=== PATIENT | male | born 1960 | race Caucasian/White ===

== ENCOUNTER 2016-07-15 22:45 | Emergency (ER) | payer OTHER ==
[~2016-07-15] VITALS: Ht 177.8 cm; Wt 55.0 kg
[~2016-07-15 22:45] MED LIST: DILA100C PO; QUET200 PO; TRAZ100 PO; VIST50CA PO
[2016-07-15 23:12] VITALS: BP 116/67; PULSE 93; RESP 18; TEMP 98.3; O2SAT 98
[2016-07-15] MEDS ORDERED: SERO400T PO (23:21)
[2016-07-15] MEDS ORDERED: DILA100C PO (23:21)
[2016-07-15] MEDS ORDERED: VIST50CA PO (23:21)
[2016-07-15] MEDS ORDERED: TRAZ100T4 PO (23:21)
--- NOTE | 2016-07-15 23:30 | PD ---
HPI Chief Complaint: Alcohol/Drug Intoxication Time Seen by Provider: 23:14 Travel History International Travel<30 days: No Contact w/Intl Traveler<30days: No Traveled to known affect area: No History of Present Illness HPI The patient is a 55-year-old male who presents to the emergency department via police as a [place] act for alcohol intoxication. According to the police affidavit the patient was found with slurred speech and difficulty walking, thought to be secondary to alcohol intoxication. The patient states he drinks several beers earlier today, approximately 12-14 "hurricanes ", admits to being intoxicated. The patient states he has a camp in the [facility], does not have a residence with addressed to go home. The patient denies any illicit drug use. The patient denies any physical complaints including chest pain, shortness breath, nausea, vomiting, or abdominal pain. PFSH Past Medical History Asthma: Yes Blood Disorders: No Anxiety: Yes Depression: Yes Heart Rhythm Problems: Yes Cancer: Yes (PANCREATIC) Cardiovascular Problems: Yes Chemotherapy: Yes Chest Pain: Yes Diabetes: No Diminished Hearing: No Endocrine: No Gastrointestinal Disorders: Yes Genitourinary: Yes Headaches: Yes Hepatitis: Yes (HEP C) Immune Disorder: No Implanted Vascular Access Dvce: No Kidney Stones: Yes Musculoskeletal: Yes Neurologic: Yes Reproductive: No Respiratory: Yes Integumentary: Yes Immunizations Current: Yes Myocardial Infarction: Yes Pancreatitis: Yes Radiation Therapy: Yes Seizures: Yes (PT STATES HE HAS A SEIZURE EARLIER TODAY) Past Surgical History Cholecystectomy: Yes (UNKNOWN) Other Surgery: Yes (BIOPSY OF PANCREAS) Social History Alcohol Use: Yes (20 BEERS PER DAY) Tobacco Use: Yes (1PPD) Substance Use: Yes (DRINKS BEER DAILY, SMOKES MARIJUANA DAILY) Allergies-Medications (Allergen,Severity, Reaction): Coded Allergies: No Known Allergies (Verified , 09/22/15) Reported Meds & Prescriptions Reported Meds & Active Scripts Active Reported Dilantin (Phenytoin Extended) 100 Mg Cap 100 Mg PO QID Vistaril (Hydroxyzine Pamoate) 50 Mg Cap 100 Mg PO QID PRN Trazodone (Trazodone HCl) 100 Mg Tab 200 Mg PO BID Seroquel (Quetiapine Fumarate) 400 Mg Tab 800 Mg PO HS Review of Systems Except as stated in HPI: all other systems reviewed are Neg General / Constitutional: No: Fever Cardiovascular: No: Chest Pain or Discomfort Respiratory: No: Shortness of Breath Gastrointestinal: No: Nausea, Vomiting, Abdominal Pain Musculoskeletal: No: Weakness Psychiatric: Positive: Substance Abuse (alcohol intoxication) Physical Exam Narrative GENERAL: Awake, alert, 35-year-old male who appears his stated age and is in no acute respiratory distress. SKIN: Focused skin assessment warm/dry. HEAD: Atraumatic. Normocephalic. EYES: Pupils equal and round. Mild injection bilateral. ENT: No nasal bleeding or discharge. Mucous membranes pink and moist. NECK: Trachea midline. No JVD. CARDIOVASCULAR: Regular rate and rhythm. No murmur appreciated. RESPIRATORY: No accessory muscle use. Clear to auscultation. Breath sounds equal bilaterally. GASTROINTESTINAL: Abdomen soft, non-tender, nondistended. No rebound tenderness. MUSCULOSKELETAL: No obvious deformities. No clubbing. No cyanosis. No edema. NEUROLOGICAL: Awake and alert. No obvious cranial nerve deficits. Motor grossly within normal limits. Normal speech. Nonfocal. Oriented to person, but not place or year. PSYCHIATRIC: Appears intoxicated. Data Data Last Documented VS Vital Signs Date Time Temp Pulse Resp B/P Pulse Ox O2 Delivery O2 Flow Rate FiO2 07/15/16 23:12 98.3 93 18 116/67 98 MDM Medical Decision Making Medical Screen Exam Complete: Yes Emergency Medical Condition: Yes Medical Record Reviewed: Yes Differential Diagnosis Differential diagnosis includes alcohol intoxication, substance ingestion, hyponatremia, subdural hemorrhage, delirium, dehydration. Narrative Course The patient admits to drinking over 12 "hurricane "beers earlier today, appears intoxicated, is nonfocal on exam. The patient will be monitored in the emergency department and once he is able to ambulate will be discharged home in the morning. Diagnosis Primary Impression: Alcohol intoxication Qualified Code: F10.920 - Alcohol intoxication, uncomplicated Patient Instructions: General Instructions Additional Instructions: Decrease alcohol intake. Discharged home with patient is able to ambulate. Follow-up with a primary physician. Disposition: 01 DISCHARGE HOME Condition: Stable Octavio Padilla MD July 15, 2016 23:30
== END 2016-07-16 06:03 | disposition home or self-care (01) ==
LOC: NEPD 22:45
DX: F10.120 Alcohol abuse with intoxication, uncomplicated (principal); R47.81 Slurred speech; R26.2 Difficulty in walking, not elsewhere classified; J45.909 Unspecified asthma, uncomplicated; F17.210 Nicotine dependence, cigarettes, uncomplicated; F12.129 Cannabis abuse with intoxication, unspecified; F10.129 Alcohol abuse with intoxication, unspecified
CPT/HCPCS: 99284

== ENCOUNTER 2016-08-09 12:12 | Emergency (ER) | payer SELFPAY ==
[~2016-08-09 12:12] MED LIST changes: -QUET200 PO; +SERO400T PO; -TRAZ100 PO; +TRAZ100T4 PO
[2016-08-09 12:21] VITALS: BP 105/72; PULSE 97; RESP 20; TEMP 97.9; O2SAT 97
== END 2016-08-09 14:21 | disposition left against medical advice (07) ==
LOC: NED 12:12
DX: Z53.21 Procedure and treatment not carried out due to patient leaving prior to being seen by health care provider (principal)
CPT/HCPCS: 99281

== ENCOUNTER 2016-09-21 08:48 | Emergency (ER) | payer SELFPAY ==
[~2016-09-21] VITALS: Ht 177.8 cm; Wt 60.0 kg
[2016-09-21 08:57] VITALS: BP 112/73; PULSE 88; RESP 17; TEMP 97.7; O2SAT 93
[2016-09-21] MEDS ORDERED: SODIUM CHLOR 0.9% 1000 ML INJ 1,000 ML IV ONE (09:05)
--- NOTE | 2016-09-21 09:13 | PD ---
HPI Chief Complaint: Alcohol/Drug Intoxication Time Seen by Provider: 09:01 Travel History International Travel<30 days: No Contact w/Intl Traveler<30days: No Traveled to known affect area: No History of Present Illness HPI Patient is a 55-year-old male with history of seizures, presents to emergency room for possible seizure episode as well as alcohol intoxication. As per EMS, bystanders called as patient was found on the side of the road. Reports that he had been drinking heavily last night, reports that he thinks that he was sleeping on the road but wasn't sure if he had a seizure or not. Patient thinks that he had a seizure as he woke up and had stool all over himself. Patient reports that he does take Dilantin 100 mg every 6 hours for his seizures , reports that he ran out of his medications one month ago and needs a refill. Patient endorses that he also uses marijuana on top of the alcohol. Denies use of any other drugs. Patient at this time has no other complaints, denies any headache or dizziness, denies any nausea or vomiting. Patient denies any chest pain or shortness of breath. PFSH Past Medical History Asthma: Yes Blood Disorders: No Anxiety: Yes Depression: Yes Heart Rhythm Problems: Yes Cancer: Yes (PANCREATIC) Cardiovascular Problems: Yes Chemotherapy: Yes Chest Pain: Yes Diabetes: No Diminished Hearing: No Endocrine: No Gastrointestinal Disorders: Yes Genitourinary: Yes Headaches: Yes Hepatitis: Yes (HEP C) Immune Disorder: No Implanted Vascular Access Dvce: No Kidney Stones: Yes Musculoskeletal: Yes Neurologic: Yes Reproductive: No Respiratory: Yes Integumentary: Yes Immunizations Current: Yes Myocardial Infarction: Yes Pancreatitis: Yes Radiation Therapy: Yes Seizures: Yes (PT STATES HE HAS A SEIZURE EARLIER TODAY) Past Surgical History Cholecystectomy: Yes (UNKNOWN) Other Surgery: Yes (BIOPSY OF PANCREAS) Social History Alcohol Use: Yes (20 BEERS PER DAY) Tobacco Use: Yes (1PPD) Substance Use: Yes (marijuana; alcohol abuse) Allergies-Medications (Allergen,Severity, Reaction): Coded Allergies: No Known Allergies (Verified , 09/21/16) Reported Meds & Prescriptions Reported Meds & Active Scripts Active Reported Dilantin (Phenytoin Extended) 100 Mg Cap 100 Mg PO QID Vistaril (Hydroxyzine Pamoate) 50 Mg Cap 100 Mg PO QID PRN Seroquel (Quetiapine Fumarate) 400 Mg Tab 800 Mg PO HS Review of Systems General / Constitutional: No: Fever Eyes: No: Visual changes HENT: No: Headaches Cardiovascular: No: Chest Pain or Discomfort Respiratory: No: Shortness of Breath Gastrointestinal: No: Abdominal Pain Genitourinary: No: Dysuria Musculoskeletal: No: Pain Skin: No Rash Neurologic: Positive: Seizures, No: Weakness Psychiatric: Positive: Substance Abuse, No: Anxiety, Depression, Suicidal Ideations Endocrine: No: Polydipsia Hematologic/Lymphatic: No: Easy Bruising Physical Exam Narrative GENERAL: No acute distress, nontoxic, disheveled HEAD: Atraumatic. Normocephalic. EYES: Pupils equal and round. No scleral icterus. No injection or drainage. ENT: No nasal bleeding or discharge. Mucous membranes pink and moist. NECK: Trachea midline. No JVD. CARDIOVASCULAR: Regular rate and rhythm. No murmur appreciated. RESPIRATORY: No accessory muscle use. Clear to auscultation. Breath sounds equal bilaterally. GASTROINTESTINAL: Abdomen soft, non-tender, nondistended. Hepatic and splenic margins not palpable. MUSCULOSKELETAL: No obvious deformities. No clubbing. No cyanosis. No edema. NEUROLOGICAL: Awake and alert. No obvious cranial nerve deficits. Motor grossly within normal limits. Normal speech. PSYCHIATRIC: Patient appears intoxicated on evaluation Data Data Last Documented VS Vital Signs Date Time Temp Pulse Resp B/P Pulse Ox O2 Delivery O2 Flow Rate FiO2 09/21/16 09:17 100 Nasal Cannula 2 09/21/16 08:57 97.7 88 17 112/73 Orders Complete Blood Count With Diff (09/21/16 09:05) Alcohol (Ethanol) (09/21/16 09:05) Phenytoin (Dilantin) (09/21/16 09:05) Drug Screen, Random Urine (09/21/16 09:05) Electrocardiogram (09/21/16 ) Ecg Monitoring (09/21/16 09:05) Iv Access Insert/Monitor (09/21/16 09:05) Oximetry (09/21/16 09:05) Comprehensive Metabolic Panel (09/21/16 09:05) Sodium Chlor 0.9% 1000 Ml Inj (Ns 1000 M (09/21/16 09:05) Sodium Chloride 0.9% Flush (Ns Flush) (09/21/16 09:15) Phenytoin Inj (Dilantin Inj) (09/21/16 09:15) Thiamine Inj (Thiamine Inj) (09/21/16 09:15) Ua Includes Microscopic (09/21/16 09:05) Ct Brain W/O Iv Contrast(Rout) (09/21/16 09:05) Labs Laboratory Tests Test 09/21/16 09:00 White Blood Count 4.4 TH/MM3 Red Blood Count 3.77 MIL/MM3 Hemoglobin 13.3 GM/DL Hematocrit 39.4 % Mean Corpuscular Volume 104.6 FL Mean Corpuscular Hemoglobin 35.3 PG Mean Corpuscular Hemoglobin 33.8 % Concent Red Cell Distribution Width 16.6 % Platelet Count 137 TH/MM3 Mean Platelet Volume 7.4 FL Neutrophils (%) (Auto) 39.1 % Lymphocytes (%) (Auto) 44.3 % Monocytes (%) (Auto) 10.8 % Eosinophils (%) (Auto) 2.7 % Basophils (%) (Auto) 3.1 % Neutrophils # (Auto) 1.7 TH/MM3 Lymphocytes # (Auto) 2.0 TH/MM3 Monocytes # (Auto) 0.5 TH/MM3 Eosinophils # (Auto) 0.1 TH/MM3 Basophils # (Auto) 0.1 TH/MM3 CBC Comment DIFF FINAL Differential Comment Sodium Level 132 MEQ/L Potassium Level 4.2 MEQ/L Chloride Level 102 MEQ/L Carbon Dioxide Level 20.2 MEQ/L Anion Gap 10 MEQ/L Blood Urea Nitrogen 4 MG/DL Creatinine 0.52 MG/DL Estimat Glomerular Filtration 164 ML/MIN Rate Random Glucose 82 MG/DL Calcium Level 7.9 MG/DL Total Bilirubin 0.2 MG/DL Aspartate Amino Transf 102 U/L (AST/SGOT) Alanine Aminotransferase 80 U/L (ALT/SGPT) Alkaline Phosphatase 50 U/L Total Protein 6.6 GM/DL Albumin 3.2 GM/DL Phenytoin (Dilantin) Level 0.5 MCG/ML Ethyl Alcohol Level 394 MG/DL [facility] Medical Decision Making Medical Screen Exam Complete: Yes Emergency Medical Condition: Yes Medical Record Reviewed: Yes Interpretation(s) EKG at 0916: NSR at 84bpm, qt/qtc: 358/399, no acute st or t wave changes, normal axis Vital Signs Date Time Temp Pulse Resp B/P Pulse Ox O2 Delivery O2 Flow Rate FiO2 7/16/17 08:57 97.7 88 17 112/73 93 Differential Diagnosis Differential includes seizure disorder, medication noncompliance, alcohol intoxication, drug abuse, electrolyte abnormality, intracranial hemorrhage though unlikely Narrative Course Patient is a 55-year-old male who presents to emergency room with EMS after he was found on the side of the road sleeping in his stool. Patient reports that he has history of seizures, he has not been taking his Dilantin for the past month as he ran out of his medications. Reports that he thinks that he may have had a seizure last night as he was found covered in his stool. Patient reports that he also drank a lot of alcohol last night, reports he does drink a few beers daily. Patient with no complaint at this time. Patient was placed on a cart monitor upon arrival to emergency room. Patient has no complaints. Patient was found on the side of the road yesterday, unsure if he had a seizure and had any trauma to his head. Given his alcohol intoxication, CT head ordered. Plan to order lab work including Dilantin level. If his dilantin level is low, will give bolus of Dilantin IV. Plan to obtain basic blood work including tox screen and alcohol level. Plan to monitor patient in the ER. Ultimately, will refill patient Dilantin 100mg q 6 hours - he understands need to follow up with his primary care doctor or neurologist for further scripts. Last Impressions Head CT 09/21/16904 Signed Impressions: Service Date/Time: Wednesday, September 21, 2016 09:29 - CONCLUSION: No acute disease. Oscar Rice MD Laboratory Tests Test 09/21/16 09:00 White Blood Count 4.4 TH/MM3 (4.0-11.0) Red Blood Count 3.77 MIL/MM3 (4.50-5.90) Hemoglobin 13.3 GM/DL (13.0-17.0) Hematocrit 39.4 % (39.0-51.0) Mean Corpuscular Volume 104.6 FL (80.0-100.0) Mean Corpuscular Hemoglobin 35.3 PG (27.0-34.0) Mean Corpuscular Hemoglobin 33.8 % Concent (32.0-36.0) Red Cell Distribution Width 16.6 % (11.6-17.2) Platelet Count 137 TH/MM3 (150-450) Mean Platelet Volume 7.4 FL (7.0-11.0) Neutrophils (%) (Auto) 39.1 % (16.0-70.0) Lymphocytes (%) (Auto) 44.3 % (9.0-44.0) Monocytes (%) (Auto) 10.8 % (0.0-8.0) Eosinophils (%) (Auto) 2.7 % (0.0-4.0) Basophils (%) (Auto) 3.1 % (0.0-2.0) Neutrophils # (Auto) 1.7 TH/MM3 (1.8-7.7) Lymphocytes # (Auto) 2.0 TH/MM3 (1.0-4.8) Monocytes # (Auto) 0.5 TH/MM3 (0-0.9) Eosinophils # (Auto) 0.1 TH/MM3 (0-0.4) Basophils # (Auto) 0.1 TH/MM3 (0-0.2) CBC Comment DIFF FINAL Differential Comment Sodium Level 132 MEQ/L (136-145) Potassium Level 4.2 MEQ/L (3.5-5.1) Chloride Level 102 MEQ/L (98-107) Carbon Dioxide Level 20.2 MEQ/L (21.0-32.0) Anion Gap 10 MEQ/L (5-15) Blood Urea Nitrogen 4 MG/DL (7-18) Creatinine 0.52 MG/DL (0.60-1.30) Estimat Glomerular Filtration 164 ML/MIN Rate (>89) Random Glucose 82 MG/DL (74-106) Calcium Level 7.9 MG/DL (8.5-10.1) Total Bilirubin 0.2 MG/DL (0.2-1.0) Aspartate Amino Transf 102 U/L (15-37) (AST/SGOT) Alanine Aminotransferase 80 U/L (12-78) (ALT/SGPT) Alkaline Phosphatase 50 U/L (45-117) Total Protein 6.6 GM/DL (6.4-8.2) Albumin 3.2 GM/DL (3.4-5.0) Phenytoin (Dilantin) Level 0.5 MCG/ML (10.0-20.0) Ethyl Alcohol Level 394 MG/DL (0-5) Labs reviewed, dilantin level low - plan to give patient a Dilantin bolus. Patient is intoxicated, will have patient sober up prior to discharge Patient understands need to follow-up with neurologist as well as primary care doctor as soon as possible, understands importance of medication compliance. Diagnosis Primary Impression: Alcohol intoxication Additional Impressions: Seizure disorder Noncompliance with medications Patient Instructions: General Instructions Additional Instructions: Please take all medications as prescribed Please stop with your primary care doctor and a neurologist as soon as possible Return to emergency room if symptoms worsen or progress Return to emergency room as needed Please drink responsibly Med/Other Pt SpecificInfo: Prescription(s) given Scripts Phenytoin Extended (Dilantin)100 Mg Zgx415 Mg PO QID #90 CAP Ref 0 Prov:Shweta Morales DO 09/21/16 Shweta Morales DO Sep 21, 2016 09:13
[2016-09-21] MEDS ORDERED: SODIUM CHLORIDE 0.9% FLUSH 10 ML FLUSH IVF PRN (09:15)
[2016-09-21] MEDS ORDERED: PHENYTOIN INJ 1,000 MG in SODIUM CHLORIDE 0.9% INJ 100 ML IV ONE (09:15)
[2016-09-21] MEDS ORDERED: THIAMINE INJ 100 MG in SODIUM CHLORIDE 0.9% INJ 100 ML IV ONE (09:15)
[2016-09-21 09:17] VITALS: O2SAT 100
[2016-09-21 09:17] LABS: AUTOMATED NEUTROPHIL # 1.7 TH/MM3 (1.8-7.7); BASOPHIL # 0.1 TH/MM3 (0-0.2); BASOPHIL % 3.1 % (0.0-2.0); EOSINOPHIL # 0.1 TH/MM3 (0-0.4); EOSINOPHIL % 2.7 % (0.0-4.0); HEMATOCRIT 39.4 % (39.0-51.0); HEMO FLAGS DIFF FINAL; LYMPH % 44.3 % (9.0-44.0); MEAN CELL VOLUME 104.6 FL (80.0-100.0); MEAN CORPUSCULAR HEMOGLOBIN 35.3 PG (27.0-34.0); MEAN CORPUSCULAR HGB CONC 33.8 % (32.0-36.0); MONO % 10.8 % (0.0-8.0); NEUT % 39.1 % (16.0-70.0); PLATELET COUNT 137 TH/MM3 (150-450); RED BLOOD COUNT 3.77 MIL/MM3 (4.50-5.90); RED CELL DISTRIBUTION WIDTH 16.6 % (11.6-17.2); WHITE BLOOD COUNT 4.4 TH/MM3 (4.0-11.0)
[2016-09-21 09:33] LABS: ANION GAP 10 MEQ/L (5-15); AST (GOT) 102 U/L (15-37); BICARBONATE 20.2 MEQ/L (21.0-32.0); BLOOD UREA NITROGEN 4 MG/DL (7-18); CHLORIDE 102 MEQ/L (98-107); GLOMERULAR FILTRATION RATE 164 ML/MIN (>89); POTASSIUM 4.2 MEQ/L (3.5-5.1); SODIUM (NA) 132 MEQ/L (136-145)
[2016-09-21 09:36] LABS: ALKALINE PHOSPHATASE 50 U/L (45-117); ALT (GPT) 80 U/L (12-78); TOTAL BILIRUBIN ADULT 0.2 MG/DL (0.2-1.0)
--- NOTE | 2016-09-21 09:43 | RADRPT ---
EXAM DATE/TIME: 09/21/2016 09:29 [facility] COMPARISON: CT BRAIN W/O CONTRAST, September 17, 2015, 10:22. INDICATIONS : Seizure, ETOH. RADIATION DOSE: 38.40 CTDIvol (mGy) MEDICAL HISTORY : Cardiovascular disease. Hepatitis C. Hx stones, Liver disease. SURGICAL HISTORY : Cholecystectomy. Biosy pancreas. ENCOUNTER: Initial ACUITY: 1 day PAIN SCALE: 0/10 LOCATION: cranial TECHNIQUE: Multiple contiguous axial images were obtained of the head. Using automated exposure control and adj ustment of the mA and/or kV according to patient size, radiation dose was kept as low as reasonably a chievable to obtain optimal diagnostic quality images. DICOM format image data is available electro nically for review and comparison. FINDINGS: CEREBRUM: The ventricles are normal for age. No evidence of midline shift, mass lesion, hemorrhage or acute in farction. No extra-axial fluid collections are seen. POSTERIOR FOSSA: The cerebellum and brainstem are intact. The 4th ventricle is midline. The cerebellopontine angle i s unremarkable. EXTRACRANIAL: The visualized portion of the orbits is intact. SKULL: The calvaria is intact. No evidence of skull fracture. CONCLUSION: No acute disease. Oscar Rice MD on September 21, 2016 at 9:41 Board Certified Radiologist. This report was verified electronically.
[2016-09-21] MEDS ORDERED: DILA100C PO (09:52)
[2016-09-21 11:20] VITALS: BP 105/66; PULSE 74; RESP 18; O2SAT 94
--- NOTE | 2016-09-21 12:33 | EKG ---
Date Performed: 09/21/2016 Time Performed: 09:16:55 PTAGE: 55 years EKG: Sinus rhythm Compared to prior tracing no significant change NORMAL ECG PREVIOUS TRACING : 09/17/2015 10.07 DOCTOR: Reinaldo Bejarano Interpretating Date/Time 09/21/2016 12:32:12
[2016-09-21 15:02] VITALS: BP 108/65; PULSE 80; RESP 16; O2SAT 94
[2016-09-21 17:21] VITALS: BP 104/62; PULSE 76; RESP 16
== END 2016-09-21 16:45 | disposition home or self-care (01) ==
LOC: NEPC 08:48
DX: F10.129 Alcohol abuse with intoxication, unspecified (principal); G40.909 Epilepsy, unspecified, not intractable, without status epilepticus; J45.909 Unspecified asthma, uncomplicated; B19.20 Unspecified viral hepatitis C without hepatic coma; F41.9 Anxiety disorder, unspecified; F32.9 Major depressive disorder, single episode, unspecified; K85.90 Acute pancreatitis without necrosis or infection, unspecified; I25.2 Old myocardial infarction; F17.200 Nicotine dependence, unspecified, uncomplicated
CPT/HCPCS: 70450; 80053; 80185; 80307; 85025; 93005; 96374; 96375; 99285; J1165; J3411; J7030

== ENCOUNTER 2016-11-03 21:29 | Emergency (ER) | payer SELFPAY ==
[~2016-11-03] VITALS: Ht 177.8 cm; Wt 52.0 kg
[~2016-11-03 21:29] MED LIST changes: +BACT800T5 PO; +CHLO25CA9 PO; -TRAZ100T4 PO; +TRAZ100T6 PO
[2016-11-03 21:34] VITALS: BP 110/65; PULSE 101; RESP 16; TEMP 98
[2016-11-03] MEDS ORDERED: FLUMAZENIL 0.5 MG/5 ML VIAL IV PUSH PRN (22:15)
[2016-11-03] MEDS ORDERED: LORazepam 1 MG TAB PO PRN (22:15)
[2016-11-03] MEDS ORDERED: LORazepam 2 MG TAB PO PRN (22:15)
[2016-11-03] MEDS ORDERED: LORazepam 2 MG/ML VIAL IV PUSH PRN ×4 (22:15)
--- NOTE | 2016-11-03 22:15 | PD ---
HPI Chief Complaint: Alcohol/Drug Intoxication Time Seen by Provider: 22:13 Travel History International Travel<30 days: No Contact w/Intl Traveler<30days: No Traveled to known affect area: No History of Present Illness HPI 55-year-old male with history of CAD, COPD, pancreatitis, tobacco dependency, and alcohol dependency presents to the emergency department under a [place] act. Patient states that he consumes 5 pints of vodka daily. Patient denies suicidal homicidal ideations. He is requesting to "be put over that psych place." He'll like something to eat. Denies any other acute medical needs at this time. PFSH Past Medical History Asthma: Yes Blood Disorders: No Anxiety: Yes Depression: Yes Heart Rhythm Problems: Yes Cancer: Yes (PANCREATIC) Cardiovascular Problems: Yes Chemotherapy: Yes Chest Pain: Yes Diabetes: No Diminished Hearing: No Endocrine: No Gastrointestinal Disorders: Yes Genitourinary: Yes Headaches: Yes Hepatitis: Yes (HEP C) Immune Disorder: No Implanted Vascular Access Dvce: No Kidney Stones: Yes Musculoskeletal: Yes Neurologic: Yes Reproductive: No Respiratory: Yes Integumentary: Yes Immunizations Current: Yes Myocardial Infarction: Yes Pancreatitis: Yes Radiation Therapy: Yes Seizures: Yes Past Surgical History Cholecystectomy: Yes (UNKNOWN) Other Surgery: Yes (BIOPSY OF PANCREAS) Social History Alcohol Use: Yes (20 BEERS PER DAY) Tobacco Use: Yes (1PPD) Substance Use: Yes (marijuana; alcohol abuse) Allergies-Medications (Allergen,Severity, Reaction): Coded Allergies: No Known Allergies (Verified , 09/21/16) Reported Meds & Prescriptions Reported Meds & Active Scripts Active Dilantin (Phenytoin Extended) 100 Mg Cap 100 Mg PO QID Bactrim DS (Sulfamethoxazole-Trimethoprim) 800-160 Mg Tab 1 Tab PO BID Chlordiazepoxide HCl 25 Mg Capsule 25 Mg PO TID Reported Trazodone (Trazodone HCl) 100 Mg Tablet 200 Mg PO BID Dilantin (Phenytoin Extended) 100 Mg Cap 100 Mg PO QID Vistaril (Hydroxyzine Pamoate) 50 Mg Cap 100 Mg PO QID PRN Seroquel (Quetiapine Fumarate) 400 Mg Tab 800 Mg PO HS Review of Systems ROS Limitations: Intoxication Except as stated in HPI: all other systems reviewed are Neg Physical Exam Exam Limitations: Intoxication Narrative GENERAL: Unkempt male patient, clinically intoxicated with strong smell of alcohol on his breath, slurred speech but appears without distress. SKIN: Focused skin assessment warm/dry. HEAD: Atraumatic. Normocephalic. EYES: Pupils equal and round. No scleral icterus. No injection or drainage. ENT: No nasal bleeding or discharge. Mucous membranes pink and moist. NECK: Trachea midline. No JVD. CARDIOVASCULAR: Regular rate and rhythm. No murmur appreciated. RESPIRATORY: No accessory muscle use. Coarse to auscultation. Breath sounds equal bilaterally. GASTROINTESTINAL: Abdomen soft, non-tender, nondistended. Hepatic and splenic margins not palpable. MUSCULOSKELETAL: No obvious deformities. No clubbing. No cyanosis. No edema. NEUROLOGICAL: Arousable to awake No obvious cranial nerve deficits. Motor grossly within normal limits. Slurred speech. Data Data Last Documented VS Vital Signs Date Time Temp Pulse Resp B/P (MAP) Pulse Ox O2 Delivery O2 Flow Rate FiO2 11/03/16 23:17 96 16 92/53 (66) 99 Nasal Cannula 2.00 11/03/16 21:34 98.0 Orders Orders Alcohol Withdrawal Asmt-Ciwa [id number] (11/03/16 22:13) Flumazenil Inj (Romazicon Inj) (11/03/16 22:15) Lorazepam (Ativan) (11/03/16 22:15) Lorazepam Inj (Ativan Inj) (11/03/16 22:15) Lorazepam (Ativan) (11/03/16 22:15) Lorazepam Inj (Ativan Inj) (11/03/16 22:15) Lorazepam Inj (Ativan Inj) (11/03/16 22:15) Lorazepam Inj (Ativan Inj) (11/03/16 22:15) Iv Access Insert/Monitor (11/03/16 23:46) Thiamine Inj (Thiamine Inj) (11/04/16 00:00) Ns (Bolus) Inj (11/04/16 00:00) MDM Medical Decision Making Medical Screen Exam Complete: Yes Emergency Medical Condition: Yes Medical Record Reviewed: Yes Differential Diagnosis Intoxication versus mood disorder versus personality disorder versus adjustment reaction disorder Narrative Course 55-year-old male presents to emergency department under a [place] act. Patient admits to drinking 5 pints of vodka daily. He is clinically intoxicated. He will be placed on a monitor. IV access obtained, normal saline and thiamine will be given. He will be observed until he is clinically sober and has a safe motor transportation out of the hospital. At which time he will be discharged. Diagnosis Primary Impression: Alcohol intoxication Qualified Codes: F10.929 - Alcohol use, unspecified with intoxication, unspecified Condition: Stable Ángela Henderson Nov 03, 2016 22:15
[2016-11-03 22:48] VITALS: BP 92/52; PULSE 98; RESP 16; O2SAT 94
[2016-11-03 23:17] VITALS: BP 92/53; PULSE 96; RESP 16; O2SAT 99
[2016-11-04] VITALS (9 sets, daily range): BP systolic 95–154; BP diastolic 52–78; PULSE 85–102; RESP 15–18; O2SAT 97–100
[2016-11-04] MEDS ORDERED: SODIUM CHLOR 0.9% 1000 ML INJ 1,000 ML IV ONE
[2016-11-04] MEDS ORDERED: THIAMINE INJ 100 MG in SODIUM CHLORIDE 0.9% INJ 100 ML IV ONE ×2
== END 2016-11-04 10:43 | disposition home or self-care (01) ==
LOC: NEDAMB 21:29 → NEPD 11-04 10:43
DX: F10.929 Alcohol use, unspecified with intoxication, unspecified (principal); I25.2 Old myocardial infarction; F17.200 Nicotine dependence, unspecified, uncomplicated; Z87.09 Personal history of other diseases of the respiratory system; Z86.59 Personal history of other mental and behavioral disorders; Z85.07 Personal history of malignant neoplasm of pancreas; Z86.79 Personal history of other diseases of the circulatory system; Z87.19 Personal history of other diseases of the digestive system; Z87.448 Personal history of other diseases of urinary system; Z86.19 Personal history of other infectious and parasitic diseases; Z87.39 Personal history of other diseases of the musculoskeletal system and connective tissue; Z86.69 Personal history of other diseases of the nervous system and sense organs
CPT/HCPCS: 96361; 96374; 99284; J2060; J3411; J7030

== ENCOUNTER 2016-11-27 11:09 | Inpatient (IN) | payer SELFPAY ==
[~2016-11-27] VITALS: Ht 177.8 cm; Wt 61.8 kg
[2016-11-27] VITALS (7 sets, daily range): BP systolic 92–168; BP diastolic 51–85; PULSE 94–114; RESP 15–20; TEMP 97.8–101.2; O2SAT 95–100
[2016-11-27] MEDS ORDERED: DALBAVANCIN INJ 1,500 MG in DEXTROSE 5% IN WATE 500 ML INJ 500 ML IV STA ×2 (11:55)
[2016-11-27] MEDS ORDERED: ASP: Only reason for admit - IV antibiotics OTHER ONE (12:00)
[2016-11-27] MEDS ORDERED: MISCELLANEOUS PHARMACY INFORMATION XX ONE (12:00)
[2016-11-27] MEDS ORDERED: ASP: Location of Dalbavancin administration OTHER ONE (12:00)
[2016-11-27] MEDS ORDERED: ASP: No known hypersensitivity to Vanco, Telavancin, Dalbavancin OTHER ONE (12:00)
[2016-11-27] MEDS ORDERED: ASP: Does not meet inpatient admission criteria OTHER ONE (12:00)
--- NOTE | 2016-11-27 12:13 | PD ---
HPI Chief Complaint: Skin Problem Time Seen by Provider: 12:00 Travel History International Travel<30 days: No Contact w/Intl Traveler<30days: No Traveled to known affect area: No History of Present Illness HPI Patient is a 55-year-old male presenting to emergency for evaluation of skin lesions. Patient states they've been present for approximately 2 weeks. He has taken 2 courses of antibiotics which include Bactrim and Keflex with no improvement in his symptoms. Patient has redness, swelling and drainage to the right posterior forearm, left lower leg and left hand on the dorsal aspect. He denies any fever, chills, nausea, vomiting, chest pain or shortness of breath. He states his sore and painful and rates his pain 8 out of 10. Patient is a history of chronic alcoholism and is currently homeless. He does admit to drinking a few beers today. PFSH Past Medical History Asthma: Yes Blood Disorders: No Anxiety: Yes Depression: Yes Heart Rhythm Problems: Yes Cancer: Yes (PANCREATIC) Cardiovascular Problems: Yes Chemotherapy: Yes Chest Pain: Yes Diabetes: No Diminished Hearing: No Endocrine: No Gastrointestinal Disorders: Yes Genitourinary: Yes Headaches: Yes Hepatitis: Yes (HEP C) Immune Disorder: No Implanted Vascular Access Dvce: No Kidney Stones: Yes Musculoskeletal: Yes Neurologic: Yes Psychiatric: Yes Reproductive: No Respiratory: Yes Integumentary: Yes Immunizations Current: Yes Myocardial Infarction: Yes Pancreatitis: Yes Radiation Therapy: Yes Seizures: Yes Tetanus Vaccination: Unknown Past Surgical History Cholecystectomy: Yes (UNKNOWN) Other Surgery: Yes (BIOPSY OF PANCREAS) Social History Alcohol Use: Yes Tobacco Use: Yes (1PPD) Substance Use: No Allergies-Medications (Allergen,Severity, Reaction): Coded Allergies: No Known Allergies (Verified , 11/27/16) Reported Meds & Prescriptions Reported Meds & Active Scripts Active Dilantin (Phenytoin Extended) 100 Mg Cap 100 Mg PO QID Bactrim DS (Sulfamethoxazole-Trimethoprim) 800-160 Mg Tab 1 Tab PO BID Chlordiazepoxide HCl 25 Mg Capsule 25 Mg PO TID Reported Trazodone (Trazodone HCl) 100 Mg Tablet 200 Mg PO BID Dilantin (Phenytoin Extended) 100 Mg Cap 100 Mg PO QID Vistaril (Hydroxyzine Pamoate) 50 Mg Cap 100 Mg PO QID PRN Seroquel (Quetiapine Fumarate) 400 Mg Tab 800 Mg PO HS Review of Systems Except as stated in HPI: all other systems reviewed are Neg Musculoskeletal: Positive: Edema Skin: Positive Change in Pigmentation, Positive Lesions Physical Exam Narrative GENERAL: Thin, disheveled male. Resting comfortably in no acute distress. SKIN: Warm and dry. Right posterior forearm with 2 boluses lesions with purulent drainage, significant erythema and induration to the posterior right forearm extending to the medial and lateral aspect. Left lower leg with a 4 cm x 6 cm area of induration, open area in the center with scabbed lesion. Dorsal aspect of the left hand over the second and third MCP scabbed lesion, mild edema noted. HEAD: Atraumatic. Normocephalic. EYES: Pupils equal and round. No scleral icterus. No injection or drainage. ENT: No nasal bleeding or discharge. Mucous membranes pink and moist. NECK: Trachea midline. No JVD. CARDIOVASCULAR: Regular rate and rhythm. RESPIRATORY: No accessory muscle use. Clear to auscultation. Breath sounds equal bilaterally. GASTROINTESTINAL: Abdomen soft, non-tender, nondistended. Hepatic and splenic margins not palpable. MUSCULOSKELETAL: Extremities without clubbing, cyanosis, or edema. No obvious deformities. NEUROLOGICAL: Awake and alert. No obvious cranial nerve deficits. Motor grossly within normal limits. Five out of 5 muscle strength in the arms and legs. Normal speech. PSYCHIATRIC: Appropriate mood and affect; insight and judgment normal. Data Data Last Documented VS Vital Signs Date Time Temp Pulse Resp B/P (MAP) Pulse Ox O2 Delivery O2 Flow Rate FiO2 11/27/16 15:40 110 18 97 Room Air 11/27/16 15:01 99.6 Orders Orders Complete Blood Count With Diff (11/27/16 11:55) Comprehensive Metabolic Panel (11/27/16 11:55) Lactic Acid Sepsis Protocol (11/27/16 11:55) Blood Culture (11/27/16 11:55) Wound Culture And Gram Stain (11/27/16 11:55) Blood Glucose (11/27/16 11:55) Ecg Monitoring (11/27/16 11:55) Iv Access Insert/Monitor (11/27/16 11:55) Oximetry (11/27/16 11:55) Case Management Consult (11/27/16 ) Asp:No Reaction To Dalbav/Vanc (Asp Crit (11/27/16 12:00) Asp: Does Not Meet Inpt Admit (Asp Crit: (11/27/16 12:00) Asp: Iv Antibiotics Admit Only (Asp Crit (11/27/16 12:00) Asp: Location Of [facility] Admin (Asp Crit: (11/27/16 12:00) [facility] Information ([facility] (11/27/16 12:00) Dalbavancin Inj (Dalvance Inj) (11/27/16 11:55) Sodium Chlor 0.9% 1000 Ml Inj (Ns 1000 M (11/27/16 13:00) Lorazepam Inj (Ativan Inj) (11/27/16 13:15) Sodium Chlor 0.9% 1000 Ml Inj (Ns 1000 M (11/27/16 13:15) Lactic Acid (11/27/16 14:00) Wound Care (11/27/16 14:56) Mupirocin 2% Oint (Bactroban 2% Oint) (11/27/16 15:00) Ibuprofen (Motrin) (11/27/16 15:15) Lorazepam Inj (Ativan Inj) (11/27/16 15:30) Admit Order (Ed Use Only) (11/27/16 16:33) Labs Laboratory Tests Test 11/27/16 12:00 11/27/16 14:55 White Blood Count 12.2 TH/MM3 Red Blood Count 3.95 MIL/MM3 Hemoglobin 13.0 GM/DL Hematocrit 38.8 % Mean Corpuscular Volume 98.4 FL Mean Corpuscular Hemoglobin 32.9 PG Mean Corpuscular Hemoglobin Concent 33.5 % Red Cell Distribution Width 13.6 % Platelet Count 201 TH/MM3 Mean Platelet Volume 8.0 FL Neutrophils (%) (Auto) 71.1 % Lymphocytes (%) (Auto) 18.7 % Monocytes (%) (Auto) 9.0 % Eosinophils (%) (Auto) 0.1 % Basophils (%) (Auto) 1.1 % Neutrophils # (Auto) 8.7 TH/MM3 Lymphocytes # (Auto) 2.3 TH/MM3 Monocytes # (Auto) 1.1 TH/MM3 Eosinophils # (Auto) 0.0 TH/MM3 Basophils # (Auto) 0.1 TH/MM3 CBC Comment DIFF FINAL Differential Comment Blood Urea Nitrogen 4 MG/DL Creatinine 0.57 MG/DL Random Glucose 110 MG/DL Total Protein 7.3 GM/DL Albumin 3.0 GM/DL Calcium Level 8.3 MG/DL Alkaline Phosphatase 64 U/L Aspartate Amino Transf (AST/SGOT) 20 U/L Alanine Aminotransferase (ALT/SGPT) 31 U/L Total Bilirubin 0.4 MG/DL Sodium Level 131 MEQ/L Potassium Level 3.8 MEQ/L Chloride Level 99 MEQ/L Carbon Dioxide Level 23.0 MEQ/L Anion Gap 9 MEQ/L Estimat Glomerular Filtration Rate 147 ML/MIN Lactic Acid Level 2.4 mmol/L 3.0 mmol/L MDM Medical Decision Making Medical Screen Exam Complete: Yes Emergency Medical Condition: Yes Interpretation(s) Laboratory Tests Test 11/27/16 12:00 White Blood Count 12.2 TH/MM3 Red Blood Count 3.95 MIL/MM3 Hemoglobin 13.0 GM/DL Hematocrit 38.8 % Mean Corpuscular Volume 98.4 FL Mean Corpuscular Hemoglobin 32.9 PG Mean Corpuscular Hemoglobin Concent 33.5 % Red Cell Distribution Width 13.6 % Platelet Count 201 TH/MM3 Mean Platelet Volume 8.0 FL Neutrophils (%) (Auto) 71.1 % Lymphocytes (%) (Auto) 18.7 % Monocytes (%) (Auto) 9.0 % Eosinophils (%) (Auto) 0.1 % Basophils (%) (Auto) 1.1 % Neutrophils # (Auto) 8.7 TH/MM3 Lymphocytes # (Auto) 2.3 TH/MM3 Monocytes # (Auto) 1.1 TH/MM3 Eosinophils # (Auto) 0.0 TH/MM3 Basophils # (Auto) 0.1 TH/MM3 CBC Comment DIFF FINAL Differential Comment Blood Urea Nitrogen 4 MG/DL Creatinine 0.57 MG/DL Random Glucose 110 MG/DL Total Protein 7.3 GM/DL Albumin 3.0 GM/DL Calcium Level 8.3 MG/DL Alkaline Phosphatase 64 U/L Aspartate Amino Transf (AST/SGOT) 20 U/L Alanine Aminotransferase (ALT/SGPT) 31 U/L Total Bilirubin 0.4 MG/DL Sodium Level 131 MEQ/L Potassium Level 3.8 MEQ/L Chloride Level 99 MEQ/L Carbon Dioxide Level 23.0 MEQ/L Anion Gap 9 MEQ/L Estimat Glomerular Filtration Rate 147 ML/MIN Lactic Acid Level 2.4 mmol/L Vital Signs Date Time Temp Pulse Resp B/P (MAP) Pulse Ox O2 Delivery O2 Flow Rate FiO2 11/27/16 15:01 99.6 114 20 148/80 (102) 99 Room Air 11/27/16 11:11 97.8 102 15 136/80 (98) 98 Differential Diagnosis Cellulitis versus abscess versus sepsis versus metabolic abnormality versus other Narrative Course Patient is a 55-year-old male that presented to emergency evaluation of a skin infection to his arm and leg. He reports being compliant with antibiotics as outpatient including Bactrim and Keflex. He denies any fever, chills. He states the areas are sore. He is currently homeless and wounds were open to air on arrival. Blood culture, labs ordered and pending. Patient's vital signs were stable on arrival, he appears to be a good candidate for Dalvance and the protocol was initiated. Discussed with case management as well. CBC with a white count of 12.2 with slight left shift at 71.7 Chemistry reviewed, no acute findings identified Lactic acid 2.4 possibly elevated secondary to chronic alcoholism. Patient's vital signs are stable on arrival with a heart rate of 102. He has had several beers prior to his arrival in the emergency department this morning. His heart rate was reassessed at 3 PM at 114. Patient states that he is feeling like he is going into DTs. A second dose of Ativan was ordered. Repeat lactic acid ordered and pending Repeated lactic acid is 3.0 despite IV fluid resuscitation. He will be admitted under observation, patient meets sepsis protocol. Discussed with Dr. Gage who accepted admission. Admit orders placed. Sepsis Criteria SIRS Criteria (2 or more): Heart rate over 90, WBC > 23654, < 4000 or > 10% bands Sepsis Criteria (SIRS+source): Infect source susp/known Severe Sepsis (+one): Lactate >2 Septic Shock Criteria: Unresponsive to 30ml/kg fluid bolus Criteria Outcome: Meets severe sepsis criteria Diagnosis Primary Impression: Cellulitis Qualified Codes: L03.90 - Cellulitis, unspecified Additional Impressions: Sepsis Qualified Codes: A41.9 - Sepsis, unspecified organism Alcohol abuse Admitting Information Admitting Physician Requests: Observation Condition: Stable Haily Snyder [employer] Nov 27, 2016 12:13
[2016-11-27 12:21] LABS: AUTOMATED NEUTROPHIL # 8.7 TH/MM3 (1.8-7.7); BASOPHIL # 0.1 TH/MM3 (0-0.2); BASOPHIL % 1.1 % (0.0-2.0); EOSINOPHIL % 0.1 % (0.0-4.0); HEMATOCRIT 38.8 % (39.0-51.0); HEMO FLAGS DIFF FINAL; LYMPH % 18.7 % (9.0-44.0); LYMPHOCYTE # 2.3 TH/MM3 (1.0-4.8); MEAN CELL VOLUME 98.4 FL (80.0-100.0); MEAN CORPUSCULAR HEMOGLOBIN 32.9 PG (27.0-34.0); MEAN CORPUSCULAR HGB CONC 33.5 % (32.0-36.0); NEUT % 71.1 % (16.0-70.0); PLATELET COUNT 201 TH/MM3 (150-450); RED BLOOD COUNT 3.95 MIL/MM3 (4.50-5.90); RED CELL DISTRIBUTION WIDTH 13.6 % (11.6-17.2); WHITE BLOOD COUNT 12.2 TH/MM3 (4.0-11.0)
[2016-11-27 12:43] LABS: ANION GAP 9 MEQ/L (5-15); AST (GOT) 20 U/L (15-37); BLOOD UREA NITROGEN 4 MG/DL (7-18); CHLORIDE 99 MEQ/L (98-107); GLOMERULAR FILTRATION RATE 147 ML/MIN (>89); POTASSIUM 3.8 MEQ/L (3.5-5.1); SODIUM (NA) 131 MEQ/L (136-145)
[2016-11-27 12:49] LABS: ALKALINE PHOSPHATASE 64 U/L (45-117); ALT (GPT) 31 U/L (12-78); TOTAL BILIRUBIN ADULT 0.4 MG/DL (0.2-1.0)
[2016-11-27] MEDS ORDERED: SODIUM CHLOR 0.9% 1000 ML INJ 1,000 ML IV ONE ×3 (13:00→17:00)
[2016-11-27] MEDS ORDERED: LORazepam 2 MG/ML VIAL IV PUSH ONE ×2 (13:15→15:30)
[2016-11-27 14:14] LABS: LACTIC ACID GHOST NOT REPORTABLE
[2016-11-27] MEDS ORDERED: MUPIROCIN 2% OINT 22 GM TUBE TOPICAL ONE (15:00)
[2016-11-27] MEDS ORDERED: IBUPROFEN 800 MG TAB PO ONE (15:15)
[2016-11-27] MEDS ORDERED: ACETAMINOPHEN 500 MG CPLT PO ONE (17:00)
[2016-11-27] MEDS: THIAMINE HCL 100 MG TAB PO SCH (17:45)
[2016-11-27] MEDS ORDERED: ONDANSETRON HCL 4 MG/2 ML VIAL IVP PRN (17:45)
[2016-11-27] MEDS ORDERED: SODIUM CHLORIDE 0.9% FLUSH 10 ML FLUSH IV FLUSH PRN (17:45)
[2016-11-27] MEDS ORDERED: NALOXONE HCL 0.4 MG/ML AMP IV PUSH PRN (17:45)
[2016-11-27] MEDS ORDERED: ACETAMINOPHEN 325 MG TAB PO PRN ×2 (17:45)
[2016-11-27] MEDS ORDERED: FLUMAZENIL 0.5 MG/5 ML VIAL IV PUSH PRN (17:45)
[2016-11-27] MEDS ORDERED: LORazepam 2 MG/ML VIAL IV PUSH PRN ×2 (17:45)
--- NOTE | 2016-11-27 17:45 | HHI.HP ---
[facility] No Primary Care Physician Admission Diagnosis SEPSIS, CELLULITIS Diagnoses: Chief Complaint: Skin lesions Travel History International Travel<30 Days: No Contact w/Intl Traveler <30 Da: No Traveled to Known Affected Are: No History of Present Illness The patient is a 55-year-old male with past medical history of alcohol abuse and seizure disorder who is presenting to the hospital for evaluation of skin lesions. The patient was rather lethargic on examination. He attributed his tiredness to receiving Ativan earlier in the emergency department. The patient has had wounds on his upper and lower extremities for which he has apparently completed a course of by mouth antibiotics. His wounds continued to get worse so he came to the emergency department for further evaluation. In the emergency department the patient was found to be a candidate for Dalvance and he did receive an infusion. The patient appeared to get sicker after receiving the infusion and a repeat lactic acid level was checked which was higher than the initial one. The patient was also found to be in alcohol withdrawal. He says that he feels like he is withdrawing at this time. He did receive Ativan in the emergency department. As mentioned, the patient is rather tired and unable to participate meaningfully in his history. Review of Systems ROS Limitations: Clinical Condition, Intoxication, Uncooperative, Poor Historian Except as stated in HPI: all other systems reviewed are Neg Past Family Social History Past Medical History Alcohol abuse Seizure disorder Hepatitis C Pancreatitis Mood disorder Allergies: Coded Allergies: No Known Allergies (Verified , 11/27/16) Active Ordered Medications Current Medications Medications (Trade) Dose Ordered Sig/Pilar Route Start Time Stop Time Status Last Admin Sodium Chloride 1,000 ml @ 999 mls/hr BOLUS ONCE IV 11/27/16 17:00 11/27/16 18:00 11/27/16 17:03 Family History The patient denies pertinent family history Social History The patient says he smokes a pack a day. He says he drinks 4 or 5 "Hurricanes" daily. He denies drug use. He is homeless. Physical Exam Vital Signs Vital Signs Date Time Temp Pulse Resp B/P (MAP) Pulse Ox O2 Delivery O2 Flow Rate FiO2 11/27/16 17:02 109 20 92/51 (65) 100 Room Air 11/27/16 16:45 101.2 112 18 99/57 (71) 95 Room Air 11/27/16 15:40 110 18 97 Room Air 11/27/16 15:01 99.6 114 20 148/80 (102) 99 Room Air 11/27/16 11:11 97.8 102 15 136/80 (98) 98 Physical Exam GENERAL: Thin, disheveled, lethargic male. SKIN: Warm and dry. Right posterior forearm with 2 lesions with purulent drainage, significant erythema and induration to the posterior right forearm extending to the medial and lateral aspect. Left lower leg with a 4 cm x 6 cm area of induration, open area in the center with scabbed lesion. HEAD: Atraumatic. Normocephalic. EYES: Pupils equal and round. No scleral icterus. No injection or drainage. ENT: No nasal bleeding or discharge. Mucous membranes pink and moist. NECK: Trachea midline. No JVD. CARDIOVASCULAR: Tachycardic. No murmur appreciated. RESPIRATORY: Poor respiratory effort. Mild wheezing appreciated. GASTROINTESTINAL: Abdomen soft, non-tender, nondistended. Hepatic and splenic margins not palpable. MUSCULOSKELETAL: Extremities without clubbing, cyanosis, or edema. No obvious deformities. NEUROLOGICAL: Lethargic, mildly tremulous. No obvious cranial nerve deficits. Motor grossly within normal limits. Five out of 5 muscle strength in the arms and legs. PSYCHIATRIC: Flattened affect. Laboratory Laboratory Tests Test 11/27/16 12:00 11/27/16 14:55 White Blood Count 12.2 Red Blood Count 3.95 Hemoglobin 13.0 Hematocrit 38.8 Mean Corpuscular Volume 98.4 Mean Corpuscular Hemoglobin 32.9 Mean Corpuscular Hemoglobin Concent 33.5 Red Cell Distribution Width 13.6 Platelet Count 201 Mean Platelet Volume 8.0 Neutrophils (%) (Auto) 71.1 Lymphocytes (%) (Auto) 18.7 Monocytes (%) (Auto) 9.0 Eosinophils (%) (Auto) 0.1 Basophils (%) (Auto) 1.1 Neutrophils # (Auto) 8.7 Lymphocytes # (Auto) 2.3 Monocytes # (Auto) 1.1 Eosinophils # (Auto) 0.0 Basophils # (Auto) 0.1 CBC Comment DIFF FINAL Differential Comment Blood Urea Nitrogen 4 Creatinine 0.57 Random Glucose 110 Total Protein 7.3 Albumin 3.0 Calcium Level 8.3 Alkaline Phosphatase 64 Aspartate Amino Transf (AST/SGOT) 20 Alanine Aminotransferase (ALT/SGPT) 31 Total Bilirubin 0.4 Sodium Level 131 Potassium Level 3.8 Chloride Level 99 Carbon Dioxide Level 23.0 Anion Gap 9 Estimat Glomerular Filtration Rate 147 Lactic Acid Level 2.4 3.0 Date/Time Source Procedure Growth Status 11/27/16 12:05 Blood Peripheral Aerobic Blood Culture Pending Received 11/27/16 12:05 Blood Peripheral Anaerobic Blood Culture Pending Received 11/27/16 12:00 Wound Arm Gram Stain Pending Received 11/27/16 12:00 Wound Arm Wound Culture Pending Received Result Diagram: 11/27/16 1200 11/27/16 1200 Roger VTE Risk Assessment Capnilo VTE Risk Assessment: Mod/High Risk (score >= 2) Caprini Risk Assessment Model Point Value = 1 Point Value = 2 Point Value = 3 Point Value = 5 Age 41-60 Minor surgery BMI > 25 kg/m2 Swollen legs Varicose veins or History of unexplained or recurrent spontaneous Oral contraceptives or hormone replacement Sepsis (< 1 month) Serious lung disease, including pneumonia (< 1 month) Abnormal pulmonary function Acute myocardial infarction Congestive heart failure (< 1 month) History of inflammatory bowel disease Medical patient at bed rest Age 61-74 Arthroscopic surgery Major open surgery (> 45 min) Laparoscopic surgery (> 45 min) Malignancy Confined to bed (> 72 hours) Immobilizing plaster cast Central venous access Age >= 75 History of VTE Family history of VTE Factor V Leiden Prothrombin [id number] Lupus anticoagulant Anticardiolipin antibodies Elevated serum homocysteine Heparin-induced thrombocytopenia Other congenital or acquired thrombophilia Stroke (< 1 month) Elective arthroplasty Hip, pelvis, or leg fracture Acute spinal cord injury (< 1 month) Prophylaxis Regimen Total Risk Factor Score Risk Level Prophylaxis Regimen 0-1 Low Early ambulation 2 Moderate Order ONE of the following: *Sequential Compression Device (SCD) *Heparin 5000 units SQ BID 3-4 Higher Order ONE of the following medications: *Heparin 5000 units SQ TID *Enoxaparin/Lovenox 40 mg SQ daily (WT < 150 kg, CrCl > 30 mL/min) *Enoxaparin/Lovenox 30 mg SQ daily (WT < 150 kg, CrCl > 10-29 mL/min) *Enoxaparin/Lovenox 30 mg SQ BID (WT < 150 kg, CrCl > 30 mL/min) AND/OR *Sequential Compression Device (SCD) 5 or more Highest Order ONE of the following medications: *Heparin 5000 units SQ TID (Preferred with Epidurals) *Enoxaparin/Lovenox 40 mg SQ daily (WT < 150 kg, CrCl > 30 mL/min) *Enoxaparin/Lovenox 30 mg SQ daily (WT < 150 kg, CrCl > 10-29 mL/min) *Enoxaparin/Lovenox 30 mg SQ BID (WT < 150 kg, CrCl > 30 mL/min) AND *Sequential Compression Device (SCD) Assessment and Plan Assessment and Plan Sepsis The patient presents to the hospital with purulent lesions. He received a dose of Dalvance in the ED. Lactic acid elevated at 3. Also with tachycardia and leukocytosis. He was febrile to 101.2 in the emergency department. - Follow wound and blood cultures. - Check a urinalysis. - Antibiotics given as above. - Follow lactic acid level. - Monitor on telemetry. - Infectious disease consult if needed. Alcohol abuse The patient is displaying evidence of withdrawal. - CIWA protocol. - Neuro checks, seizure precautions. - MVI, thiamine and B12. - Cessation instruction. Hyponatremia Likely secondary to alcohol abuse. - IV fluids. - Continue to monitor. Seizure disorder Likely secondary to alcohol abuse. He says he has not been taking any seizure medications in a long time. - Treatment as above. PPx: Loveaxelx Discussed Condition With PtHaily Physician Certification 2 Midnight Certification Type: Admission for Inpatient Services Order for Inpatient Services The services are ordered in accordance with Medicare regulations or non- Medicare payer requirements, as applicable. In the case of services not specified as inpatient-only, they are appropriately provided as inpatient services in accordance with the 2-midnight benchmark. Estimated LOS (days): 2 days is the estimated time the patient will need to remain in the hospital, assuming treatment plan goals are met and no additional complications. Post-Hospital Plan: Home Daniel Gage DO Nov 27, 2016 17:45
[2016-11-27 19:24] LABS: BACTERIA, URINE RARE /hpf; BLOOD, URINE NEG (NEG); COMMENT (UR) CULT NOT INDICATED; CULTURE IF INDICATED CULT NOT INDICATED; GLUCOSE,URINE NEG (NEG); KETONE, URINE NEG (NEG); NITRITE,URINE NEG (NEG); URINE COLOR LIGHT-YELLOW (YELLW/STRAW)
[2016-11-27] MEDS: DOCUSATE SODIUM 50 MG/SENNA 8.6 MG TAB PO SCH (20:06)
[2016-11-27] MEDS: SODIUM CHLORIDE 0.9% FLUSH 10 ML FLUSH IV FLUSH SCH (20:06)
[2016-11-27] MEDS: ENOXAPARIN SODIUM 30 MG/0.3 ML SYRINGE SQ SCH (20:06)
[2016-11-27] MEDS: SODIUM CHLOR 0.9% 1000 ML INJ 1,000 ML IV SCH (20:08)
[2016-11-27] MEDS: LORazepam 1 MG TAB PO PRN (20:14)
[2016-11-28] VITALS (7 sets, daily range): BP systolic 142–161; BP diastolic 71–93; PULSE 88–108; RESP 16–20; TEMP 97.5–99.4; O2SAT 96–99
[2016-11-28] MEDS: SODIUM CHLOR 0.9% 1000 ML INJ 1,000 ML IV SCH ×3 (05:03→23:52)
[2016-11-28] MEDS: LORazepam 2 MG TAB PO PRN ×3 (05:03→11:03)
[2016-11-28 06:28] LABS: ALKALINE PHOSPHATASE 58 U/L (45-117); ALT (GPT) 23 U/L (12-78); ANION GAP 7 MEQ/L (5-15); AST (GOT) 14 U/L (15-37); BICARBONATE 23.6 MEQ/L (21.0-32.0); BLOOD UREA NITROGEN 8 MG/DL (7-18); CHLORIDE 106 MEQ/L (98-107); GLOMERULAR FILTRATION RATE 136 ML/MIN (>89); POTASSIUM 3.7 MEQ/L (3.5-5.1); SODIUM (NA) 137 MEQ/L (136-145); TOTAL BILIRUBIN ADULT 0.5 MG/DL (0.2-1.0)
[2016-11-28] MEDS: DOCUSATE SODIUM 50 MG/SENNA 8.6 MG TAB PO SCH ×2 (09:00→20:09)
[2016-11-28] MEDS: SODIUM CHLORIDE 0.9% FLUSH 10 ML FLUSH IV FLUSH SCH ×2 (09:00→20:09)
[2016-11-28] MEDS: MULTIVITAMIN TAB PO SCH (09:05)
[2016-11-28] MEDS: FOLIC ACID 1 MG TAB PO SCH (09:05)
[2016-11-28] MEDS: THIAMINE HCL 100 MG TAB PO SCH (09:05)
[2016-11-28 10:31] LABS: AUTOMATED NEUTROPHIL # 5.6 TH/MM3 (1.8-7.7); BASOPHIL % 0.5 % (0.0-2.0); EOSINOPHIL # 0.1 TH/MM3 (0-0.4); EOSINOPHIL % 0.7 % (0.0-4.0); HEMATOCRIT 35.7 % (39.0-51.0); LYMPH % 15.9 % (9.0-44.0); LYMPHOCYTE # 1.2 TH/MM3 (1.0-4.8); MEAN CELL VOLUME 99.3 FL (80.0-100.0); MEAN CORPUSCULAR HEMOGLOBIN 33.6 PG (27.0-34.0); MEAN CORPUSCULAR HGB CONC 33.9 % (32.0-36.0); MONO % 7.1 % (0.0-8.0); NEUT % 75.8 % (16.0-70.0); RED CELL DISTRIBUTION WIDTH 13.3 % (11.6-17.2)
[2016-11-28 11:18] LABS: HEMO FLAGS AUTO DIFF; PLATELET COUNT 136 TH/MM3 (150-450)
[2016-11-28 11:19] LABS: PLATELET ESTIMATE SMEAR NORMAL (NORMAL)
[2016-11-28 11:20] LABS: PLATELET MORPHOLOGY NORMAL (NORMAL); SCAN/DIFF AUTO DIFF CONFIRMED
[2016-11-28] MEDS: ACETAMINOPHEN/HYDROcodone 325 MG/5 MG TAB PO PRN ×3 (12:26→23:57)
--- NOTE | 2016-11-28 13:20 | HHI.PR ---
Subjective Remarks The patient was resting in bed comfortably. He said he was withdrawing from alcohol. He said his wounds hurt. He was hoping to go home tomorrow. She requested a warm blanket. Discussed with nursing. Objective Vitals Vital Signs Date Time Temp Pulse Resp B/P (MAP) Pulse Ox O2 Delivery O2 Flow Rate FiO2 11/28/16 12:23 99.4 108 18 148/71 (96) 98 11/28/16 08:09 98.3 96 18 151/93 (112) 98 11/28/16 04:00 Room Air 11/28/16 04:00 98.1 91 16 161/86 (111) 98 11/28/16 00:00 Room Air 11/28/16 00:00 98.4 96 20 153/75 (101) 99 11/27/16 20:00 98.4 94 18 142/73 (96) 96 11/27/16 20:00 Room Air 11/27/16 18:19 99.0 100 20 168/85 (112) 99 11/27/16 17:02 109 20 92/51 (65) 100 Room Air 11/27/16 16:45 101.2 112 18 99/57 (71) 95 Room Air 11/27/16 15:40 110 18 97 Room Air 11/27/16 15:01 99.6 114 20 148/80 (102) 99 Room Air I/O 11/27/16 11/27/16 11/27/16 11/28/16 11/28/16 11/28/16 07:00 15:00 23:00 07:00 15:00 23:00 Intake Total 500 ml 3000 ml 600 ml Output Total 550 ml 500 ml 900 ml Balance -50 ml 2500 ml -300 ml Intake Oral 600 ml IV Total 500 ml 3000 ml Output Urine Total 550 ml 500 ml 900 ml # Voids 2 # Bowel Movements 1 3 Result Diagram: 11/28/16 1002 11/28/16 0507 Objective Remarks GENERAL: Thin, disheveled male in NAD. SKIN: Warm and dry. Right posterior forearm with 2 lesions with purulent drainage, significant erythema and induration to the posterior right forearm extending to the medial and lateral aspect. Left lower leg with a 4 cm x 6 cm area of induration, open area in the center with scabbed lesion. HEAD: Atraumatic. Normocephalic. EYES: Pupils equal and round. No scleral icterus. No injection or drainage. ENT: No nasal bleeding or discharge. Mucous membranes pink and moist. NECK: Trachea midline. No JVD. CARDIOVASCULAR: Tachycardic. No murmur appreciated. RESPIRATORY: Poor respiratory effort. Mild wheezing appreciated. GASTROINTESTINAL: Abdomen soft, non-tender, nondistended. Hepatic and splenic margins not palpable. MUSCULOSKELETAL: Extremities without clubbing, cyanosis, or edema. No obvious deformities. NEUROLOGICAL: Mildly tremulous. No obvious cranial nerve deficits. Motor grossly within normal limits. Five out of 5 muscle strength in the arms and legs. PSYCHIATRIC: Flattened affect. Medications and IVs Current Medications Medications (Trade) Dose Ordered Sig/Pilar Route Start Time Stop Time Status Last Admin (Romazicon Inj) 0.2 mg Q1M PRN IV PUSH 11/27/16 17:45 (Ativan) 1 mg Q4H PRN PO 11/27/16 17:45 11/27/16 20:14 (Ativan) 2 mg Q2H PRN PO 11/27/16 17:45 11/28/16 11:03 (Ativan Inj) 2 mg Q1H PRN IV PUSH 11/27/16 17:45 (Ativan Inj) 2 mg Q15M PRN IV PUSH 11/27/16 17:45 Sodium Chloride 1,000 ml @ 100 mls/hr Q10H IV 11/27/16 18:00 11/28/16 05:03 (NS Flush) 2 ml UNSCH PRN IV FLUSH 11/27/16 17:45 (NS Flush) 2 ml BID IV FLUSH 11/27/16 21:00 11/27/16 20:06 (Tylenol) 650 mg Q4H PRN PO 11/27/16 17:45 (Zofran Inj) 4 mg Q6H PRN IVP 11/27/16 17:45 (Lovenox Inj) 30 mg Q24H SQ 11/27/16 20:00 11/27/16 20:06 (Tylenol) 650 mg Q6H PRN PO 11/27/16 17:45 (Fillmore 5-325 Mg) 1 tab Q4H PRN PO 11/27/16 17:45 11/28/16 12:26 (Narcan Inj) 0.4 mg UNSCH PRN IV PUSH 11/27/16 17:45 (Eleanor-Colace) 1 tab BID PO 11/27/16 21:00 (Theragran) 1 tab DAILY PO 11/28/16 09:00 11/28/16 09:05 (Folate) 1 mg DAILY PO 11/28/16 09:00 11/28/16 09:05 (Vitamin B1) 100 mg DAILY PO 11/27/16 17:45 11/28/16 09:05 A/P Assessment and Plan Sepsis The patient presents to the hospital with purulent lesions. He received a dose of Dalvance in the ED. Lactic acid elevated at 3. Also with tachycardia and leukocytosis. He was febrile to 101.2 in the emergency department. UA unremarkable. Leukocytosis improved. - Follow wound and blood cultures. Wound culture growing strep. - Antibiotics given as above. The patient does not require further gram- positive coverage as he did receive an infusion of Dalvance. - Monitor on telemetry. - Infectious disease consult if needed. Alcohol abuse The patient is displaying evidence of withdrawal. - [facility] protocol. - Neuro checks, seizure precautions. - MVI, thiamine and B12. - Cessation instruction. Hyponatremia Likely secondary to alcohol abuse. - IV fluids. - Continue to monitor. Resolved. Seizure disorder Likely secondary to alcohol abuse. He says he has not been taking any seizure medications in a long time. - Treatment as above. PPx: Lovenox Discharge Planning Anticipate discharge home in the morning if continues to improve Daniel Gage DO Nov 28, 2016 13:20
[2016-11-28] MEDS: ENOXAPARIN SODIUM 30 MG/0.3 ML SYRINGE SQ SCH (20:00)
[2016-11-28] MEDS: LORazepam 1 MG TAB PO PRN (23:58)
[2016-11-29] VITALS: BP 145/72; PULSE 82; RESP 18; TEMP 98.5; O2SAT 98
[2016-11-29 04:00] VITALS: BP 148/84; PULSE 80; RESP 19; TEMP 98.2; O2SAT 95
[2016-11-29] MEDS: ACETAMINOPHEN/HYDROcodone 325 MG/5 MG TAB PO PRN ×4 (06:34→21:43)
[2016-11-29 08:00] VITALS: BP 145/66; PULSE 72; RESP 16; TEMP 97.8; O2SAT 97
[2016-11-29] MEDS: DOCUSATE SODIUM 50 MG/SENNA 8.6 MG TAB PO SCH ×2 (08:39→20:19)
[2016-11-29] MEDS: FOLIC ACID 1 MG TAB PO SCH (08:43)
[2016-11-29] MEDS: SODIUM CHLORIDE 0.9% FLUSH 10 ML FLUSH IV FLUSH SCH ×2 (08:44→20:20)
[2016-11-29] MEDS: THIAMINE HCL 100 MG TAB PO SCH (08:44)
[2016-11-29] MEDS: MULTIVITAMIN TAB PO SCH (08:44)
[2016-11-29] MEDS: LORazepam 1 MG TAB PO PRN (10:18)
[2016-11-29] MEDS: COLLAGENASE OINT 30 GM TUBE TOPICAL SCH (11:30)
[2016-11-29] MEDS: CHLORHEXIDINE GLUCONATE 4% SOLN 120 ML BTL TOPICAL SCH (11:30)
--- NOTE | 2016-11-29 11:40 | PD.CONS ---
History of Present Illness Service Infectious Disease Consult Requested By Dr Altagracia Gage Reason for Consult Evaluate patient with multiple infected wounds Primary Care Physician No Primary Care Physician Diagnoses: History of Present Illness Patient seen and examined. Records reviewed. Patient is a 55-year-old male, with significant history of alcohol abuse, presented to the hospital for evaluation of the wounds in his upper extremity and his left leg. He is homeless, and he easily get wound when his arms or legs get banged somewhere. The wounds would get infected, and he was given an antibiotic about a month or so ago for the infected wounds and he received Bactrim. He was also apparently treated again when he was in [facility] and he was given Keflex. His had some new ones pop up in his extremities , and he presented to the hospital for further evaluation and treatment. On initial evaluation he had a white count of 12,000. He was initially afebrile. Patient received one dose of Dalvance in the emergency room, with plans of him being discharge, but apparently he had a fever. Patient also was noted to be starting to have alcohol withdrawal symptoms. He was therefore admitted for further evaluation and treatment. His temperatures are within normal limits now. His WBC is better. He had an elevated lactic acid yesterday, and it's down to normal. Wound culture has staph aureus and group A strep. Infectious disease consultation has been requested to evaluate the patient. Review of Systems Constitutional: COMPLAINS OF: Fever, Night Sweats, DENIES: Chills Eyes: DENIES: Eye pain Ears, nose, mouth, throat: DENIES: Nasal discharge, Oral lesions, Throat pain, Ear Pain Respiratory: DENIES: Cough, Shortness of breath Cardiovascular: DENIES: Chest pain, Palpitations, Syncope Gastrointestinal: DENIES: Abdominal pain, Diarrhea, Nausea, Vomiting, Difficulty Swallowing Genitourinary: DENIES: Urgency, Dysuria Musculoskeletal: DENIES: Joint pain, Joint Swelling Integumentary: COMPLAINS OF: Rash Neurologic: DENIES: Localized weakness Psychiatric: DENIES: Hallucinations Past Family Social History Allergies: Coded Allergies: No Known Allergies (Verified , 11/27/16) Past Medical History Alcohol abuse Seizure disorder Hepatitis C Pancreatitis Mood disorder Past Surgical History None Active Ordered Medications Tylenol [place] Lovenox Folate Ativan Multivitamin Zofran . Colace Thiamine Dalvance - given in ED 11/28 Family History Non-contributory Social History The patient says he smokes a pack a day. He says he drinks 4 or 5 "Hurricanes" daily. He denies drug use. He is homeless. Physical Exam Vital Signs Vital Signs Date Time Temp Pulse Resp B/P (MAP) Pulse Ox O2 Delivery O2 Flow Rate FiO2 11/29/16 08:00 97.8 72 16 145/66 (92) 97 11/29/16 07:39 Room Air 11/29/16 04:00 98.2 80 19 148/84 (105) 95 11/29/16 04:00 Room Air 11/29/16 00:00 Room Air 11/29/16 00:00 98.5 82 18 145/72 (96) 98 11/28/16 20:00 106 11/28/16 20:00 Room Air 11/28/16 20:00 97.5 100 19 142/78 (99) 96 11/28/16 16:09 98.3 100 18 143/78 (99) 97 11/28/16 12:23 99.4 108 18 148/71 (96) 98 Physical Exam GENERAL: Patient is a thin, well-developed male, awake and alert, not in respiratory distress.Has multiple crusted wounds in his L hand, R forearm, with purulence, looks like impetigo lesions, and there is a large lesion on his L anterior leg,some with crusting and some with flat bullous lesions with pus. HEAD: Atraumatic. Normocephalic. No temporal wasting, or tenderness. EYES: [place] conjunctiva. No petechia or hemorrhage. Pupils equal, round and reactive to light. Extraocular movements full and intact. No scleral icterus. No injection or drainage. EARS, NOSE AND THROAT: Nose without bleeding or purulent nasal discharge. No sinus tenderness. Moist oral mucosa, no oral lesions noted. NECK: Trachea midline. Supple and not tender, no meningeal signs CARDIOVASCULAR: Regular rate and rhythm. No murmurs, rubs or gallops heard RESPIRATORY: Clear to auscultation. Breath sounds equal bilaterally. No rales , wheezing or rhonchi ABDOMEN: Soft, non-tender, nondistended. Bowel sounds present and normoactive. No guarding. No rebound. No organomegaly. EXTREMITIES: No clubbing, cyanosis, or edema. No joint effusion, has good ROM. No calf tenderness. Well perfused and warm. NEUROLOGICAL: Awake and alert. Cranial nerves grossly intact. Motor grossly within normal limits. PSYCHIATRIC: Normal affect, calm and cooperative. LINE: No evidence of infection Laboratory Date/Time Source Procedure Growth Status 11/27/16 12:05 Blood Peripheral Aerobic Blood Culture - Preliminary NO GROWTH IN 1 DAY Resulted 11/27/16 12:05 Blood Peripheral Anaerobic Blood Culture - Preliminary NO GROWTH IN 1 DAY Resulted 11/27/16 12:00 Wound Arm Gram Stain - Final Resulted 11/27/16 12:00 Wound Culture - Preliminary Group A Beta Strep Staphylococcus Aureus Resulted Result Diagram: 11/28/16 1002 11/28/16 0505 Assessment and Plan Assessment and Plan IMPRESSION Impetigo BUE and LLE Fever, resolved, ?due to ETOH withdrawal, ?sepsis Leukocytosis resolved Known ETOH abuse Homelessness RECOMMENDATION Will have patient take shower and use Hibiclens He got dose of Dalvance, and will not start anything else at this time Wound care to lesions If BC negative, and remains afebrile and no DT, should be able to D/C next day or two Monitor progress I will follow along with you Thank you for this consultation Emmie Villarreal MD Nov 29, 2016 11:40
--- NOTE | 2016-11-29 11:44 | HHI.PR ---
Subjective Remarks The pt reported increased pain in his leg wound. He also said his hand was starting to bother him more. Discussed with infectious disease. Objective Vitals Vital Signs Date Time Temp Pulse Resp B/P (MAP) Pulse Ox O2 Delivery O2 Flow Rate FiO2 11/29/16 08:00 97.8 72 16 145/66 (92) 97 11/29/16 07:39 Room Air 11/29/16 04:00 98.2 80 19 148/84 (105) 95 11/29/16 04:00 Room Air 11/29/16 00:00 Room Air 11/29/16 00:00 98.5 82 18 145/72 (96) 98 11/28/16 20:00 106 11/28/16 20:00 Room Air 11/28/16 20:00 97.5 100 19 142/78 (99) 96 11/28/16 16:09 98.3 100 18 143/78 (99) 97 11/28/16 12:23 99.4 108 18 148/71 (96) 98 I/O 11/28/16 11/28/16 11/28/16 11/29/16 11/29/16 11/29/16 07:00 15:00 23:00 07:00 15:00 23:00 Intake Total 600 ml 840 ml 660 ml 0 ml Output Total 900 ml 500 ml 1050 ml Balance -300 ml 340 ml -390 ml 0 ml Intake Oral 600 ml 840 ml 660 ml IV Total 0 ml Output Urine Total 900 ml 500 ml 1050 ml # Bowel Movements 3 1 2 Result Diagram: 11/28/16 1002 11/28/16 0507 Objective Remarks GENERAL: Thin, disheveled male in NAD. SKIN: Warm and dry. Right posterior forearm with 2 lesions to the posterior right forearm extending to the medial and lateral aspect. Left lower leg with a 4 cm x 6 cm area of induration, open area in the center with scabbed lesion. Appears infected. HEAD: Atraumatic. Normocephalic. EYES: Pupils equal and round. No scleral icterus. No injection or drainage. ENT: No nasal bleeding or discharge. Mucous membranes pink and moist. NECK: Trachea midline. No JVD. CARDIOVASCULAR: Tachycardic. No murmur appreciated. RESPIRATORY: Poor respiratory effort. Mild wheezing appreciated. GASTROINTESTINAL: Abdomen soft, non-tender, nondistended. Hepatic and splenic margins not palpable. MUSCULOSKELETAL: Extremities without clubbing, cyanosis, or edema. No obvious deformities. NEUROLOGICAL: Mildly tremulous. No obvious cranial nerve deficits. Motor grossly within normal limits. Five out of 5 muscle strength in the arms and legs. PSYCHIATRIC: Slightly flattened affect. Medications and IVs Current Medications Medications (Trade) Dose Ordered Sig/Pilar Route Start Time Stop Time Status Last Admin (Romazicon Inj) 0.2 mg Q1M PRN IV PUSH 11/27/16 17:45 (Ativan) 1 mg Q4H PRN PO 11/27/16 17:45 11/29/16 10:18 (Ativan) 2 mg Q2H PRN PO 11/27/16 17:45 11/28/16 11:03 (Ativan Inj) 2 mg Q1H PRN IV PUSH 11/27/16 17:45 (Ativan Inj) 2 mg Q15M PRN IV PUSH 11/27/16 17:45 (NS Flush) 2 ml UNSCH PRN IV FLUSH 11/27/16 17:45 (NS Flush) 2 ml BID IV FLUSH 11/27/16 21:00 11/29/16 08:44 (Tylenol) 650 mg Q4H PRN PO 11/27/16 17:45 (Zofran Inj) 4 mg Q6H PRN IVP 11/27/16 17:45 (Lovenox Inj) 30 mg Q24H SQ 11/27/16 20:00 11/27/16 20:06 (Tylenol) 650 mg Q6H PRN PO 11/27/16 17:45 11/29/16 08:44 (Rake 5-325 Mg) 1 tab Q4H PRN PO 11/27/16 17:45 11/29/16 10:18 (Narcan Inj) 0.4 mg UNSCH PRN IV PUSH 11/27/16 17:45 (Eleanor-Colace) 1 tab BID PO 11/27/16 21:00 (Theragran) 1 tab DAILY PO 11/28/16 09:00 11/29/16 08:44 (Folate) 1 mg DAILY PO 11/28/16 09:00 11/29/16 08:43 (Vitamin B1) 100 mg DAILY PO 11/27/16 17:45 11/29/16 08:44 (Hibiclens 4% Top Soln) 1 applic DAILY TOPICAL 11/29/16 11:30 11/30/16 09:01 (Santyl Oint) 1 applic DAILY TOPICAL 11/29/16 11:30 A/P Assessment and Plan Sepsis The patient presents to the hospital with purulent lesions. He received a dose of Dalvance in the ED. Lactic acid elevated at 3. Also with tachycardia and leukocytosis. He was febrile to 101.2 in the emergency department. UA unremarkable. Leukocytosis improved. - Follow wound and blood cultures. Wound culture growing strep and staph aureus. - Antibiotics given as above. The patient does not require further gram- positive coverage as he did receive an infusion of Dalvance. Will consult ID for further recommendations on management. - Monitor on telemetry. Alcohol abuse The patient is displaying evidence of withdrawal. - CIWA protocol. - Neuro checks, seizure precautions. - MVI, thiamine and B12. - Cessation instruction. Hyponatremia Likely secondary to alcohol abuse. - IV fluids. - Continue to monitor. Resolved. Seizure disorder Likely secondary to alcohol abuse. He says he has not been taking any seizure medications in a long time. - Treatment as above. PPx: Lovenox Discharge Planning Anticipate discharge home in the morning if continues to improve, pending ID clearance Daniel Gage DO Nov 29, 2016 11:44
[2016-11-29 12:00] VITALS: BP 127/72; PULSE 76; RESP 16; TEMP 98.7; O2SAT 98
[2016-11-29 14:21] LABS: BICARBONATE 27.3 MEQ/L (21.0-32.0); POTASSIUM 3.5 MEQ/L (3.5-5.1)
[2016-11-29 16:00] VITALS: BP 136/62; PULSE 76; RESP 16; TEMP 98.3; O2SAT 98
[2016-11-29 16:10] LABS: AUTOMATED NEUTROPHIL # 3.3 TH/MM3 (1.8-7.7); BASOPHIL # 0.1 TH/MM3 (0-0.2); BASOPHIL % 1.1 % (0.0-2.0); EOSINOPHIL # 0.3 TH/MM3 (0-0.4); EOSINOPHIL % 4.5 % (0.0-4.0); HEMATOCRIT 35.1 % (39.0-51.0); LYMPH % 37.6 % (9.0-44.0); LYMPHOCYTE # 2.6 TH/MM3 (1.0-4.8); MEAN CELL VOLUME 99.6 FL (80.0-100.0); MEAN CORPUSCULAR HEMOGLOBIN 33.2 PG (27.0-34.0); MEAN CORPUSCULAR HGB CONC 33.3 % (32.0-36.0); MONO % 8.9 % (0.0-8.0); NEUT % 47.9 % (16.0-70.0); RED BLOOD COUNT 3.52 MIL/MM3 (4.50-5.90); RED CELL DISTRIBUTION WIDTH 13.1 % (11.6-17.2); WHITE BLOOD COUNT 6.9 TH/MM3 (4.0-11.0)
[2016-11-29 16:22] LABS: HEMO FLAGS DIFF FINAL; PLATELET COUNT 99 TH/MM3 (150-450)
[2016-11-29 20:00] VITALS: BP 138/76; PULSE 81; RESP 18; TEMP 97.7; O2SAT 97
[2016-11-29] MEDS: ENOXAPARIN SODIUM 30 MG/0.3 ML SYRINGE SQ SCH (20:20)
[2016-11-30] VITALS: BP 168/80; PULSE 83; RESP 18; TEMP 98.7; O2SAT 98
[2016-11-30] MEDS: ACETAMINOPHEN/HYDROcodone 325 MG/5 MG TAB PO PRN ×2 (01:37→06:07)
[2016-11-30 04:00] VITALS: BP 152/74; PULSE 69; RESP 18; TEMP 97.8; O2SAT 98
[2016-11-30 08:00] VITALS: BP 153/88; PULSE 82; RESP 18; TEMP 98; O2SAT 99
[2016-11-30] MEDS: THIAMINE HCL 100 MG TAB PO SCH (08:43)
[2016-11-30] MEDS: FOLIC ACID 1 MG TAB PO SCH (08:44)
[2016-11-30] MEDS: MULTIVITAMIN TAB PO SCH (08:44)
[2016-11-30] MEDS: DOCUSATE SODIUM 50 MG/SENNA 8.6 MG TAB PO SCH (08:44)
[2016-11-30] MEDS: SODIUM CHLORIDE 0.9% FLUSH 10 ML FLUSH IV FLUSH SCH (08:44)
[2016-11-30] MEDS: CHLORHEXIDINE GLUCONATE 4% SOLN 120 ML BTL TOPICAL SCH (08:45)
[2016-11-30] MEDS: COLLAGENASE OINT 30 GM TUBE TOPICAL SCH (08:45)
[2016-11-30] MEDS: LORazepam 1 MG TAB PO PRN (08:49)
[2016-11-30] MEDS ORDERED: CHLO25CA9 PO (09:31)
[2016-11-30] MEDS ORDERED: DILA100C PO (09:32)
--- NOTE | 2016-11-30 09:32 | HHI.DCPOC ---
Discharge Care Plan Diagnosis: (1) Sepsis (2) Cellulitis (3) Noncompliance with medications (4) Alcohol intoxication (5) Seizure disorder (6) Homeless Goals to Promote Your Health * To prevent worsening of your condition and complications * To maintain your health at the optimal level Directions to Meet Your Goals Take your medications as prescribed Follow your dietary instruction Follow activity as directed Keep your appointments as scheduled Take your immunizations and boosters as scheduled If your symptoms worsen call your PCP, if no PCP go to Urgent Care Center or Emergency Room Smoking is Dangerous to Your Health. Avoid second hand smoke Call the 24-hour hour crisis hotline for domestic abuse at Daniel Gage DO Nov 30, 2016 09:32
--- NOTE | 2016-11-30 09:39 | HHI.DS ---
Discharge Summary Admission Date Nov 27, 2016 at 17:35 Discharge Date: Nov 30, 2016 Admitting Diagnosis SEPSIS, CELLULITIS (1) Noncompliance with medications ICD Code: Z91.14 - Patient's other noncompliance with medication regimen Status: Acute (2) Seizure disorder ICD Code: G40.909 - Seizure disorder Status: Acute (3) Alcohol intoxication ICD Code: F10.929 - Alcohol use, unspecified with intoxication, unspecified Status: Acute (4) Sepsis ICD Code: A41.9 - Sepsis, unspecified organism Diagnosis: Principal Status: Acute (5) Cellulitis ICD Code: L03.90 - Cellulitis Status: Acute (6) Homeless ICD Code: Z59.0 - Homeless Status: Acute Procedures None Brief History - From Admission The patient is a 55-year-old male with past medical history of alcohol abuse and seizure disorder who is presenting to the hospital for evaluation of skin lesions. The patient was rather lethargic on examination. He attributed his tiredness to receiving Ativan earlier in the emergency department. The patient has had wounds on his upper and lower extremities for which he has apparently completed a course of by mouth antibiotics. His wounds continued to get worse so he came to the emergency department for further evaluation. In the emergency department the patient was found to be a candidate for Dalvance and he did receive an infusion. The patient appeared to get sicker after receiving the infusion and a repeat lactic acid level was checked which was higher than the initial one. The patient was also found to be in alcohol withdrawal. He says that he feels like he is withdrawing at this time. He did receive Ativan in the emergency department. As mentioned, the patient is rather tired and unable to participate meaningfully in his history. CBC/BMP: 11/29/16 1522 11/29/16 1309 Significant Findings Laboratory Tests Test 11/27/16 12:00 11/27/16 14:55 11/27/16 18:08 11/27/16 18:44 White Blood Count 12.2 TH/MM3 (4.0-11.0) Red Blood Count 3.95 MIL/MM3 (4.50-5.90) Hematocrit 38.8 % (39.0-51.0) Neutrophils (%) (Auto) 71.1 % (16.0-70.0) Monocytes (%) (Auto) 9.0 % (0.0-8.0) Neutrophils # (Auto) 8.7 TH/MM3 (1.8-7.7) Monocytes # (Auto) 1.1 TH/MM3 (0-0.9) Blood Urea Nitrogen 4 MG/DL (7-18) Creatinine 0.57 MG/DL (0.60-1.30) Random Glucose 110 MG/DL (74-106) Albumin 3.0 GM/DL (3.4-5.0) Calcium Level 8.3 MG/DL (8.5-10.1) Sodium Level 131 MEQ/L (136-145) Lactic Acid Level 2.4 mmol/L (0.4-2.0) 3.0 mmol/L (0.4-2.0) Urine Bacteria RARE /hpf (NONE) Test 11/28/16 05:07 11/28/16 10:02 11/29/16 13:09 11/29/16 15:22 Random Glucose 148 MG/DL (74-106) 114 MG/DL (74-106) Total Protein 6.3 GM/DL (6.4-8.2) Albumin 2.4 GM/DL (3.4-5.0) Calcium Level 8.1 MG/DL (8.5-10.1) Aspartate Amino Transf (AST/SGOT) 14 U/L (15-37) Red Blood Count 3.60 MIL/MM3 (4.50-5.90) 3.52 MIL/MM3 (4.50-5.90) Hemoglobin 12.1 GM/DL (13.0-17.0) 11.7 GM/DL (13.0-17.0) Hematocrit 35.7 % (39.0-51.0) 35.1 % (39.0-51.0) Platelet Count 136 TH/MM3 (150-450) 99 TH/MM3 (150-450) Mean Platelet Volume 6.8 FL (7.0-11.0) Neutrophils (%) (Auto) 75.8 % (16.0-70.0) Blood Urea Nitrogen 5 MG/DL (7-18) Creatinine 0.49 MG/DL (0.60-1.30) Sodium Level 135 MEQ/L (136-145) Monocytes (%) (Auto) 8.9 % (0.0-8.0) Eosinophils (%) (Auto) 4.5 % (0.0-4.0) PE at Discharge GENERAL: Thin, disheveled male in NAD. SKIN: Warm and dry. Right posterior forearm with 2 lesions to the posterior right forearm extending to the medial and lateral aspect. Left lower leg with a 4 cm x 6 cm area of induration, open area in the center with scabbed lesion. Appears infected. HEAD: Atraumatic. Normocephalic. EYES: Pupils equal and round. No scleral icterus. No injection or drainage. ENT: No nasal bleeding or discharge. Mucous membranes pink and moist. NECK: Trachea midline. No JVD. CARDIOVASCULAR: Regular rate and rhythm. No murmur appreciated. RESPIRATORY: Clear to auscultation bilaterally. GASTROINTESTINAL: Abdomen soft, non-tender, nondistended. Hepatic and splenic margins not palpable. MUSCULOSKELETAL: Extremities without clubbing, cyanosis, or edema. No obvious deformities. NEUROLOGICAL: Mildly tremulous. No obvious cranial nerve deficits. Motor grossly within normal limits. Five out of 5 muscle strength in the arms and legs. PSYCHIATRIC: Mood and affect appropriate. Pt update on day of discharge The patient was feeling well. He said he would like to be on his seizure medications again. He said his last seizure was about a week ago. He said he wants to stop drinking alcohol. Hospital Course Sepsis The patient presented to the hospital with purulent lesions. He received a dose of Dalvance in the ED. Lactic acid was elevated at 3. He had tachycardia and leukocytosis. He was febrile to 101.2 in the emergency department. The ED decided to admit the pt at that time. He was monitored on telemetry. UA was unremarkable. Leukocytosis improved. Wound culture grew strep and staph aureus. Infectious disease was consulted. No additional antibiotics were deemed necessary. He received Hibiclens. He received wound care. Blood cultures remained negative and he did not spike another fever. Alcohol abuse The patient displayed evidence of withdrawal. He was started on the CIWA protocol. He was placed on neuro checks and seizure precautions. He received MVI , thiamine and B12. He received cessation instruction. He will be discharged with a short course of Librium. Seizure disorder He says he has not been taking any seizure medications in a long time because of a lack of funds. He will be discharged on his old Dilantin dose. Case management to assist with obtaining a Blue Card. He was placed on seizure precautions. Pt Condition on Discharge: Stable Discharge Disposition: Discharge Home Discharge Time: > 30 minutes Discharge Instructions DIET: Follow Instructions for: As Tolerated, No Restrictions Activities you can perform: See Additionl Instruction Other Activity Instructions: Seizure precautions Follow up Referrals: PCP Follow-up - 1 Week Changed Medications: Chlordiazepoxide HCl (Chlordiazepoxide HCl) 25 Mg Capsule 25 MG PO TID PRN for Withdrawal, #9 CAP (Changed from: 12) Continued Medications: Phenytoin Extended (Dilantin) 100 Mg Cap 100 MG PO QID for Control Seizures, #120 CAP 0 Refills (This prescription has been renewed) Discontinued Medications: Hydroxyzine Pamoate (Vistaril) 50 Mg Cap 100 MG PO QID PRN for MILD ANXIETY, CAP 0 Refills Phenytoin Extended (Dilantin) 100 Mg Cap 100 MG PO QID for Control Seizures, #90 CAP 0 Refills Quetiapine (Seroquel) 400 Mg Tab 800 MG PO HS, #30 TAB 0 Refills Sulfamethoxazole-Trimethoprim (Bactrim DS) 800-160 Mg Tab 1 TAB PO BID for Infection, #20 TAB 0 Refills Trazodone (Trazodone) 100 Mg Tablet 200 MG PO BID for Control Depression, #30 TAB 0 Refills Daniel Gage DO Nov 30, 2016 09:39
[2016-11-30 12:00] VITALS: BP 133/75; PULSE 87; RESP 18; TEMP 98.9; O2SAT 98
[2016-11-30] MEDS: PHENYTOIN SODIUM 100 MG CAP PO SCH ×2 (12:38→12:39)
== END 2016-11-30 13:18 | disposition home or self-care (01) | DRG 872 ==
LOC: NEPD 11:09 → NEDA 16:35 → OBSVTOIN 17:35 → N04A 19:12
PROVIDERS: ADMIT Hospitalist; ATTEND Hospitalist
DX: A41.9 Sepsis, unspecified organism (principal); E87.1 Hypo-osmolality and hyponatremia; L03.116 Cellulitis of left lower limb; L03.113 Cellulitis of right upper limb; F10.239 Alcohol dependence with withdrawal, unspecified; L03.114 Cellulitis of left upper limb; Z59.0 Homelessness; B19.20 Unspecified viral hepatitis C without hepatic coma; F17.210 Nicotine dependence, cigarettes, uncomplicated; R00.0 Tachycardia, unspecified; B95.61 Methicillin susceptible Staphylococcus aureus infection as the cause of diseases classified elsewhere; B95.0 Streptococcus, group A, as the cause of diseases classified elsewhere; L01.00 Impetigo, unspecified; Z91.14 Patient's other noncompliance with medication regimen; J45.909 Unspecified asthma, uncomplicated; F41.9 Anxiety disorder, unspecified; F32.9 Major depressive disorder, single episode, unspecified; I25.2 Old myocardial infarction; Z87.442 Personal history of urinary calculi; G40.909 Epilepsy, unspecified, not intractable, without status epilepticus
CPT/HCPCS: 80048; 80053; 81001; 83605; 85025; 86403; 87040; 87070; 87147; 87186; 87205; 96361; 96365; 96375; 96376; J0875; J1650; J2060; J7030; J7060

== ENCOUNTER 2017-04-05 19:04 | Emergency (ER) | payer SELFPAY ==
[~2017-04-05 19:04] MED LIST changes: -BACT800T5 PO; -SERO400T PO; -TRAZ100T6 PO; -VIST50CA PO
[2017-04-05 19:10] VITALS: BP 179/93; PULSE 98; RESP 16; TEMP 97.9; O2SAT 96
[2017-04-05] MEDS ORDERED: SODIUM CHLOR 0.9% 1000 ML INJ 1,000 ML IV SCH (20:18)
[2017-04-05] MEDS ORDERED: SODIUM CHLORIDE 0.9% FLUSH 10 ML FLUSH IVF PRN (20:30)
[2017-04-05] MEDS ORDERED: ceFAZolin 2 GM PREMIX 50 ML IV ONE (20:30)
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
--- NOTE | 2017-04-05 20:47 | RADRPT ---
EXAM DATE/TIME: 04/05/2017 20:15 [facility] COMPARISON: No previous studies available for comparison. INDICATIONS : Left foot pain from a fall. MEDICAL HISTORY : Cardiovascular disease. Hepatitis C. SURGICAL HISTORY : Cholecystectomy. ENCOUNTER: Initial ACUITY: 1 day PAIN SCORE: 6/10 LOCATION: Left foot FINDINGS: Three view exam was performed of the left ankle. The bony structures are in normal alignment. No ev idence of fracture, dislocation, or soft tissue swelling. The ankle mortise is intact. No radiopaqu e foreign bodies are seen. Bony mineralization is normal. CONCLUSION: Intact left ankle. Wilian Browne MD on April 05, 2017 at 20:44 Board Certified Radiologist. This report was verified electronically.
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
[2017-04-05] MEDS ORDERED: IOHEXOL 350 MG/ML 10 ML VIAL (for RAD DIAG) IVCONTRAST ONE (21:10)
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
[2017-04-05 21:12] LABS: AUTOMATED NEUTROPHIL # 5.3 TH/MM3 (1.8-7.7); BASOPHIL # 0.1 TH/MM3 (0-0.2); BASOPHIL % 0.9 % (0.0-2.0); EOSINOPHIL # 0.2 TH/MM3 (0-0.4); EOSINOPHIL % 1.9 % (0.0-4.0); HEMATOCRIT 41.2 % (39.0-51.0); HEMOGLOBIN 14.4 GM/DL (13.0-17.0); LYMPH % 27.2 % (9.0-44.0); LYMPHOCYTE # 2.3 TH/MM3 (1.0-4.8); MEAN CELL VOLUME 96.4 FL (80.0-100.0); MEAN CORPUSCULAR HEMOGLOBIN 33.7 PG (27.0-34.0); MONO % 7.9 % (0.0-8.0); MONOCYTE # 0.7 TH/MM3 (0-0.9); NEUT % 62.1 % (16.0-70.0); PLATELET COUNT 187 TH/MM3 (150-450); RED BLOOD COUNT 4.28 MIL/MM3 (4.50-5.90); RED CELL DISTRIBUTION WIDTH 13.4 % (11.6-17.2); WHITE BLOOD COUNT 8.6 TH/MM3 (4.0-11.0)
--- NOTE | 2017-04-05 21:15 | RADRPT ---
EXAM DATE/TIME: 04/05/2017 21:00 [facility] COMPARISON: CT BRAIN W/O CONTRAST, September 21, 2016, 9:29. INDICATIONS : Trauma; fall. RADIATION DOSE: 61.05 CTDIvol (mGy) ; Tabletop CT Head MEDICAL HISTORY : Non-responsive. SURGICAL HISTORY : Non-responsive. ENCOUNTER: Initial ACUITY: 1 day PAIN SCALE: Non-responsive LOCATION: cranial TECHNIQUE: Multiple contiguous axial images were obtained of the head. Using automated exposure control and adj ustment of the mA and/or kV according to patient size, radiation dose was kept as low as reasonably a chievable to obtain optimal diagnostic quality images. DICOM format image data is available electro nically for review and comparison. FINDINGS: CEREBRUM: The ventricles are normal for age. No evidence of midline shift, mass lesion, hemorrhage or acute in farction. No extra-axial fluid collections are seen. POSTERIOR FOSSA: The cerebellum and brainstem are intact. The 4th ventricle is midline. The cerebellopontine angle i s unremarkable. EXTRACRANIAL: There is an old fracture of the nose. Visualized paranasal sinuses and mastoid air cells are clear. SKULL: The calvaria is intact. No evidence of skull fracture. CONCLUSION: No bleed or other acute intracranial abnormality. Wilian Browne MD on April 05, 2017 at 21:11 Board Certified Radiologist. This report was verified electronically.
[2017-04-05 21:21] LABS: INTERNATIONAL NORMALIZED RATIO 0.9 RATIO; PROTHROMBIN TIME - PATIENT 9.4 SEC (9.8-11.6)
--- NOTE | 2017-04-05 21:22 | RADRPT ---
EXAM DATE/TIME: 04/05/2017 21:00 [facility] COMPARISON: CT CERVICAL SPINE W/O CONTRAST, July 14, 2014, 20:27. INDICATIONS : Trauma; fall. RADIATION DOSE: 21.60 CTDIvol (mGy) MEDICAL HISTORY : Non-responsive. SURGICAL HISTORY : Non-responsive. ENCOUNTER: Initial ACUITY: 1 day PAIN SCALE: Non-responsive LOCATION: neck TECHNIQUE: Volumetric scanning of the cervical spine was performed. Multiplanar reconstructions in the sagittal, coronal and oblique axial planes were performed. Using automated exposure control and adjustment o f the mA and/or kV according to patient size, radiation dose was kept as low as reasonably achievable to obtain optimal diagnostic quality images. DICOM format image data is available electronically f or review and comparison. FINDINGS: Cervical spine is intact and normally aligned. Vertebral bodies have normal height. Moderate to severe disc space narrowing with small, broad/diffuse disc osteophyte complex and moderat e bilateral uncovertebral and facet osteoarthritis again seen at C5/C6 and C6/C7. There is mild to mo derate bilateral foraminal stenosis at each level. Perivertebral soft tissues are within normal limits. . CONCLUSION: Intact cervical spine. Degenerative changes are again noted at C5/C6 and C6/C7. Wilian Browen MD on April 05, 2017 at 21:18 Board Certified Radiologist. This report was verified electronically.
--- NOTE | 2017-04-05 21:25 | RADRPT ---
EXAM DATE/TIME: 04/05/2017 21:05 [facility] COMPARISON: No previous studies available for comparison. INDICATIONS : Trauma; fall. IV CONTRAST: 90 cc Omnipaque 350 (iohexol) IV ; Cumulative dose for multiple exams. ORAL CONTRAST: No oral contrast ingested. RADIATION DOSE: 6.83 CTDIvol (mGy) ; Combined studies - Thorax/Abdomen/Pelvis MEDICAL HISTORY : Non-responsive. SURGICAL HISTORY : Non-responsive. ENCOUNTER: Initial ACUITY: 1 day PAIN SCALE: Non-responsive LOCATION: abdomen TECHNIQUE: Volumetric scanning of the abdomen and pelvis was performed. Using automated exposure control and ad justment of the mA and/or kV according to patient size, radiation dose was kept as low as reasonably achievable to obtain optimal diagnostic quality images. DICOM format image data is available electro nically for review and comparison. FINDINGS: LOWER LUNGS: The visualized lower lungs are clear. LIVER: Homogeneous fatty density without lesion. There is no dilation of the biliary tree. No calcified ga llstones. SPLEEN: Normal size without lesion. PANCREAS: Within normal limits. KIDNEYS: 3 mm mid zone and 4 mm lower pole nonobstructing stones of the right kidney. No acute renal abnormali ty. ADRENAL GLANDS: Within normal limits. VASCULAR: There is atherosclerosis of the abdominal aorta. No aneurysm. BOWEL/MESENTERY: The stomach, small bowel, and colon demonstrate no acute abnormality. There is no free intraperitone al air or fluid. ABDOMINAL WALL: Within normal limits. RETROPERITONEUM: There is no lymphadenopathy. BLADDER: No wall thickening or mass. REPRODUCTIVE: Within normal limits. INGUINAL: There is no lymphadenopathy or hernia. MUSCULOSKELETAL: Within normal limits for patient age. CONCLUSION: 1. No acute abnormality. 2. Fatty liver. 3. 3 and 4 mm nonobstructing stones of the right kidney. 4. Atherosclerotic abdominal aorta. No aneurysm. Wilian Browne MD on April 05, 2017 at 21:21 Board Certified Radiologist. This report was verified electronically.
[2017-04-05 21:27] VITALS: BP 134/70; PULSE 92; RESP 16; O2SAT 98
--- NOTE | 2017-04-05 21:29 | RADRPT ---
EXAM DATE/TIME: 04/05/2017 21:05 [facility] COMPARISON: No previous studies available for comparison. INDICATIONS : Trauma; fall. IV CONTRAST: 90 cc Omnipaque 350 (iohexol) IV ; Cumulative dose for multiple exams. RADIATION DOSE: 6.83 CTDIvol (mGy) ; Combined studies - Thorax/Abdomen/Pelvis MEDICAL HISTORY : Non-responsive. SURGICAL HISTORY : Non-responsive. ENCOUNTER: Initial ACUITY: 1 day PAIN SCALE: Non-responsive LOCATION: chest TECHNIQUE: Volumetric scanning of the chest was performed. Using automated exposure control and adjustment of t he mA and/or kV according to patient size, radiation dose was kept as low as reasonably achievable to obtain optimal diagnostic quality images. DICOM format image data is available electronically for review and comparison. Follow-up recommendations for detected pulmonary nodules are based at a minimum on nodule size and pa tient risk factors according to Fleischner Society Guidelines. FINDINGS: LUNGS: There is no consolidation or pneumothorax. No concerning pulmonary nodule is visualized. PLEURA: There is no pleural thickening or pleural effusion. MEDIASTINUM: The heart and great vessels demonstrate no acute abnormality. There is no mediastinal or hilar lymph adenopathy. AXILLAE: Within normal limits. No lymphadenopathy. SKELETAL: Within normal limits for patient age. CONCLUSION: Negative trauma chest CT. Wilian Browne MD on April 05, 2017 at 21:26 Board Certified Radiologist. This report was verified electronically.
--- NOTE | 2017-04-05 21:31 | RADRPT ---
EXAM DATE/TIME: 04/05/2017 21:05 [facility] COMPARISON: No previous studies available for comparison. INDICATIONS : Trauma; fall. IV CONTRAST: 90 cc Omnipaque 350 (iohexol) IV ; Cumulative dose for multiple exams. RADIATION DOSE: CTDIvol (mGy) ; Reconstructed from previous dataset, no dose MEDICAL HISTORY : Non-responsive. SURGICAL HISTORY : Non-responsive. ENCOUNTER: Initial ACUITY: 1 day PAIN SCALE: Non-responsive LOCATION: upper back TECHNIQUE: Volumetric scanning of the thoracic spine was performed. Multiplanar reconstructions in the sagittal , coronal and oblique axial planes were performed. Using automated exposure control and adjustment o f the mA and/or kV according to patient size, radiation dose was kept as low as reasonably achievable to obtain optimal diagnostic quality images. DICOM format image data is available electronically fo r review and comparison. FINDINGS: There is no fracture or subluxation of the thoracic spine. Vertebral bodies have normal height. No si gnificant disc space narrowing but there is slight anterior osseous bridging at most levels. Perivertebral soft tissues are within normal limits. CONCLUSION: Intact thoracic spine. Minimal disc centered degenerative changes. Wilian Browne MD on April 05, 2017 at 21:27 Board Certified Radiologist. This report was verified electronically.
--- NOTE | 2017-04-05 21:34 | RADRPT ---
EXAM DATE/TIME: 04/05/2017 21:05 [facility] COMPARISON: No previous studies available for comparison. INDICATIONS : Trauma; fall,. IV CONTRAST: 90 cc Omnipaque 350 (iohexol) IV ; Cumulative dose for multiple exams. RADIATION DOSE: CTDIvol (mGy) ; Reconstructed from previous dataset, no dose MEDICAL HISTORY : Non-responsive. SURGICAL HISTORY : Non-responsive. ENCOUNTER: Initial ACUITY: 1 day PAIN SCALE: Non-responsive LOCATION: lower back TECHNIQUE: Volumetric scanning of the lumbar spine was performed. Multiplanar reconstructions in the sagittal, coronal and oblique axial planes were performed. Using automated exposure control and adjustment of the mA and/or kV according to patient size, radiation dose was kept as low as reasonably achievable t o obtain optimal diagnostic quality images. DICOM format image data is available electronically for review and comparison. FINDINGS: CONUS MEDULLARIS: Normal. PARASPINAL SOFT TISSUES: Normal. LUMBAR CORD: Normal. DURAL SAC: Normal. L1-L2: The disc, uncovertebral joints, central canal, foramina, and facets are normal. L2-L3: The disc, uncovertebral joints, central canal, foramina, and facets are normal. L3-L4: The disc, uncovertebral joints, central canal, foramina, and facets are normal. L4 CONCLUSION: Intact lumbar spine. Very mild degenerative changes at L4/L5 and L5/S1 without significant foraminal or spinal stenosis. Wilian Browne MD on April 05, 2017 at 21:30 Board Certified Radiologist. This report was verified electronically.
[2017-04-05] MEDS ORDERED: ACETAMINOPHEN 325 MG TAB PO ONE (21:45)
[2017-04-05] MEDS ORDERED: NAPR-810 PO (22:29)
[2017-04-05 22:49] LABS: BILIRUBIN, URINE NEG (NEG); BLOOD, URINE NEG (NEG); GLUCOSE,URINE NEG (NEG); KETONE, URINE NEG (NEG); NITRITE,URINE NEG (NEG); PH, URINE 6.5 (5.0-8.5); URINE COLOR LIGHT-YELLOW (YELLW/STRAW); URINE LEUKOCYTE ESTERASE NEG (NEG)
== END 2017-04-06 06:27 | disposition home or self-care (01) ==
LOC: NEPC 19:04 → NEDAMB 04-06 06:27
DX: S93.402A Sprain of unspecified ligament of left ankle, initial encounter (principal); F10.129 Alcohol abuse with intoxication, unspecified; M54.2 Cervicalgia; I25.2 Old myocardial infarction; J45.909 Unspecified asthma, uncomplicated; B19.20 Unspecified viral hepatitis C without hepatic coma; F32.9 Major depressive disorder, single episode, unspecified; F17.210 Nicotine dependence, cigarettes, uncomplicated; W13.2XXA Fall from, out of or through roof, initial encounter; Y90.8 Blood alcohol level of 240 mg/100 ml or more; Y93.H3 Activity, building and construction; Z85.07 Personal history of malignant neoplasm of pancreas
CPT/HCPCS: 70450; 71045; 71260; 72125; 72129; 72132; 72170; 73110; 73590; 73610; 74177; 80048; 80307; 81001; 85025; 85610; 85730; 86850; 86900; 86901; 86920; 96361; 96365; 99285; J0690; J7030; L1906; Q9967

== ENCOUNTER 2017-08-18 10:26 | Emergency (ER) | payer BC ==
[~2017-08-18] VITALS: Ht 177.8 cm; Wt 60.0 kg
[2017-08-18 11:05] VITALS: BP 129/78; PULSE 100; RESP 20; TEMP 97.2; O2SAT 93
[2017-08-18 12:22] LABS: BASOPHIL # 0.1 TH/MM3 (0-0.2); BASOPHIL % 0.9 % (0.0-2.0); EOSINOPHIL % 0.1 % (0.0-4.0); HEMATOCRIT 43.2 % (39.0-51.0); HEMOGLOBIN 14.7 GM/DL (13.0-17.0); LYMPHOCYTE # 1.4 TH/MM3 (1.0-4.8); MEAN CELL VOLUME 100.8 FL (80.0-100.0); MEAN CORPUSCULAR HEMOGLOBIN 34.4 PG (27.0-34.0); MEAN CORPUSCULAR HGB CONC 34.1 % (32.0-36.0); MEAN PLATELET VOLUME 7.9 FL (7.0-11.0); MONO % 7.6 % (0.0-8.0); MONOCYTE # 0.5 TH/MM3 (0-0.9); NEUT % 71.4 % (16.0-70.0); PLATELET COUNT 96 TH/MM3 (150-450); RED BLOOD COUNT 4.28 MIL/MM3 (4.50-5.90); RED CELL DISTRIBUTION WIDTH 16.3 % (11.6-17.2)
[2017-08-18 12:29] LABS: BACTERIA, URINE RARE /hpf; BILIRUBIN, URINE NEG (NEG); BLOOD, URINE SMALL (NEG); GLUCOSE,URINE NEG (NEG); HYALINE CAST, URINE 2 /lpf (RARE); KETONE, URINE 10 mg/dL (NEG); MUCUS URINE FEW /lpf (OCC); NITRITE,URINE NEG (NEG); URINE COLOR YELLOW (YELLW/STRAW); URINE LEUKOCYTE ESTERASE NEG (NEG)
[2017-08-18 12:36] LABS: ALBUMIN 3.7 GM/DL (3.4-5.0); ALT (GPT) 149 U/L (12-78); AST (GOT) 176 U/L (15-37); BICARBONATE 20.7 MEQ/L (21.0-32.0); BLOOD UREA NITROGEN 5 MG/DL (7-18); CALCIUM 8.1 MG/DL (8.5-10.1); CHLORIDE 98 MEQ/L (98-107); CREATININE 0.66 MG/DL (0.60-1.30); GLOMERULAR FILTRATION RATE 124 ML/MIN (>89); GLUCOSE,RANDOM 73 MG/DL (74-106); SODIUM (NA) 133 MEQ/L (136-145)
[2017-08-18 12:38] LABS: ALKALINE PHOSPHATASE 97 U/L (45-117); TOTAL BILIRUBIN ADULT 0.3 MG/DL (0.2-1.0); TOTAL PROTEIN 7.7 GM/DL (6.4-8.2)
--- NOTE | 2017-08-18 13:16 | PD ---
HPI . Seizure Chief Complaint: Seizure Time Seen by Provider: 12:44 Travel History International Travel<30 days: No Contact w/Intl Traveler<30days: No Traveled to known affect area: No History of Present Illness HPI This is a homeless alcoholic who presents to us complaining with seizures 3 within the last 12 hours. He states that he does not take seizure medication because it does not work. He denies any injuries related to the seizures. He has been lucid between his seizures. Symptoms are mild with no modifying factors. PFSH Past Medical History Arthritis: No Asthma: Yes Blood Disorders: No Anxiety: Yes Depression: Yes Heart Rhythm Problems: Yes Cancer: Yes (PANCREATIC) Cardiovascular Problems: Yes High Cholesterol: No Chemotherapy: Yes Chest Pain: Yes Congestive Heart Failure: No COPD: No Cerebrovascular Accident: No Diabetes: No Diminished Hearing: No Endocrine: No Gastrointestinal Disorders: Yes GERD: No Genitourinary: Yes Headaches: Yes Hepatitis: Yes (HEP C) Hiatal Hernia: No Immune Disorder: No Implanted Vascular Access Dvce: No Kidney Stones: Yes Musculoskeletal: Yes Neurologic: Yes Psychiatric: Yes Reproductive: No Respiratory: Yes Integumentary: Yes Immunizations Current: Yes Migraines: No Myocardial Infarction: Yes Pancreatitis: Yes Radiation Therapy: Yes Renal Failure: No Seizures: Yes (LAST SEIZURE YESTERDAY 05/23/17) Sleep Apnea: No Ulcer: No Past Surgical History Abdominal Surgery: No Cardiac Surgery: No Cholecystectomy: Yes (UNKNOWN) Ear Surgery: No Endocrine Surgery: No Eye Surgery: No Genitourinary Surgery: No Gynecologic Surgery: No Oral Surgery: No Thoracic Surgery: No Other Surgery: Yes (BIOPSY OF PANCREAS) Social History Alcohol Use: Yes (20 beers daily) Tobacco Use: Yes (1PPD) Substance Use: No (alcohol) Allergies-Medications (Allergen,Severity, Reaction): Coded Allergies: No Known Allergies (Verified , 11/27/16) Reported Meds & Prescriptions Reported Meds & Active Scripts Active No Active Prescriptions or Reported Medications Review of Systems Except as stated in HPI: all other systems reviewed are Neg Physical Exam Narrative GENERAL: Disheveled, malodorous man who smells heavily of old alcohol. SKIN: warm/dry. HEAD: Normocephalic. Atraumatic. EYES: Pupils equal and round. Extraocular movements are intact. ENT: Mucous membranes pink and moist. NECK: Supple. Full range of motion without pain.. CARDIOVASCULAR: Regular rate and rhythm. RESPIRATORY: No accessory muscle use. Normal respiratory rate. Saturation 93% . He is a smoker of both alcohol and marijuana. GASTROINTESTINAL: Abdomen soft. Nontender. Bowel sounds present. Nondistended. MUSCULOSKELETAL: No obvious deformities. Normal muscle tone. NEUROLOGICAL: Awake and alert. No obvious cranial nerve deficits. Motor grossly within normal limits. Normal speech. PSYCHIATRIC: Appropriate mood and affect; insight and judgment normal. Data Data Last Documented VS Vital Signs Date Time Temp Pulse Resp B/P (MAP) Pulse Ox O2 Delivery O2 Flow Rate FiO2 08/18/17 12:50 18 Room Air 08/18/17 11:05 97.2 100 129/78 (95) 93 Orders Orders Complete Blood Count With Diff (08/18/17 11:07) Comprehensive Metabolic Panel (08/18/17 11:07) Urinalysis - C+S If Indicated (08/18/17 11:07) Labs Laboratory Tests Test 08/18/17 11:29 08/18/17 11:57 Urine Color YELLOW Urine Turbidity CLEAR Urine pH 6.0 Urine Specific [place] 1.009 Urine Protein TRACE mg/dL Urine Glucose (UA) NEG mg/dL Urine Ketones 10 mg/dL Urine Occult Blood SMALL Urine Nitrite NEG Urine Bilirubin NEG Urine Urobilinogen LESS THAN 2.0 MG/DL Urine Leukocyte Esterase NEG Urine RBC 6 /hpf Urine Bacteria RARE /hpf Urine Hyaline Casts 2 /lpf Urine Granular Casts 3 /lpf Urine Mucus FEW /lpf Microscopic Urinalysis Comment CULT NOT INDICATED White Blood Count 7.0 TH/MM3 Red Blood Count 4.28 MIL/MM3 Hemoglobin 14.7 GM/DL Hematocrit 43.2 % Mean Corpuscular Volume 100.8 FL Mean Corpuscular Hemoglobin 34.4 PG Mean Corpuscular Hemoglobin Concent 34.1 % Red Cell Distribution Width 16.3 % Platelet Count 96 TH/MM3 Mean Platelet Volume 7.9 FL Neutrophils (%) (Auto) 71.4 % Lymphocytes (%) (Auto) 20.0 % Monocytes (%) (Auto) 7.6 % Eosinophils (%) (Auto) 0.1 % Basophils (%) (Auto) 0.9 % Neutrophils # (Auto) 5.0 TH/MM3 Lymphocytes # (Auto) 1.4 TH/MM3 Monocytes # (Auto) 0.5 TH/MM3 Eosinophils # (Auto) 0.0 TH/MM3 Basophils # (Auto) 0.1 TH/MM3 CBC Comment AUTO DIFF Differential Comment AUTO DIFF CONFIRMED Platelet Estimate LOW Platelet Morphology Comment NORMAL Blood Urea Nitrogen 5 MG/DL Creatinine 0.66 MG/DL Random Glucose 73 MG/DL Total Protein 7.7 GM/DL Albumin 3.7 GM/DL Calcium Level 8.1 MG/DL Alkaline Phosphatase 97 U/L Aspartate Amino Transf (AST/SGOT) 176 U/L Alanine Aminotransferase (ALT/SGPT) 149 U/L Total Bilirubin 0.3 MG/DL Sodium Level 133 MEQ/L Potassium Level 4.3 MEQ/L Chloride Level 98 MEQ/L Carbon Dioxide Level 20.7 MEQ/L Anion Gap 14 MEQ/L Estimat Glomerular Filtration Rate 124 ML/MIN [facility] Medical Decision Making Medical Screen Exam Complete: Yes Emergency Medical Condition: Yes Differential Diagnosis Differential diagnosis of seizure includes but is not limited to epilepsy, electrolyte abnormality, previous stroke, closed head injury Narrative Course This patient presents complaining with seizures. He is a homeless alcoholic. His seizures are most likely related to his alcoholism. He is now lucid. He has been in our department for several hours without seizure activity. He reports that he is not willing to take medication for his seizures. CBC & BMP Diagram 08/18/17 11:57 Total Protein 7.7, Albumin 3.7, Calcium Level 8.1 L, Alkaline Phosphatase 97, Aspartate Amino Transf (AST/SGOT) 176 H, Alanine Aminotransferase (ALT/SGPT) 149 H, Total Bilirubin 0.3 This patient is medically clear for discharge. Diagnosis Primary Impression: Seizures Additional Impression: Alcohol intoxication Qualified Codes: F10.920 - Alcohol use, unspecified with intoxication, uncomplicated Patient Instructions: General Instructions, Nonepileptic Seizures (GEN) Scripts No Active Prescriptions or Reported Meds Disposition: DISCHARGE HOME Condition: Stable Anayeli Clark MD Aug 18, 2017 13:16
== END 2017-08-18 14:06 | disposition home or self-care (01) ==
LOC: NEPD 10:26
DX: R56.9 Unspecified convulsions (principal); F10.229 Alcohol dependence with intoxication, unspecified; F17.200 Nicotine dependence, unspecified, uncomplicated; Z59.0 Homelessness
CPT/HCPCS: 80053; 81001; 85025; 99283

== ENCOUNTER 2017-11-23 09:06 | Observation (INO) ==
[2017-11-23 09:53] LABS: Baso # (Auto) 0.1 th/mm3 (0.0-0.2); Baso % (Auto) 1.3 % (0.0-2.0); Eos # (Auto) 0.1 th/mm3 (0.0-0.4); Eos % (Auto) 1.1 % (0.0-4.0); Hematocrit 40.4 % (39.0-51.0); Hemoglobin 13.6 gm/dL (13.0-17.0); Lymph # (Auto) 1.9 th/mm3 (1.0-4.8); Lymph % (Auto) 35.6 % (9.0-44.0); Mean Corpuscular HGB Conc 33.7 % (32.0-36.0); Mean Corpuscular Hemoglobin 35.5 pg (27.0-34.0); Mean Corpuscular Volume 105.3 fL (80.0-100.0); Mean Platelet Volume 7.8 fL (7.0-11.0); Mono # (Auto) 0.7 th/mm3 (0.0-0.9); Mono % (Auto) 12.6 % (0.0-8.0); Neut # (Auto) 2.7 th/mm3 (1.8-7.7); Neut % (Auto) 49.4 % (16.0-70.0); Platelet Count 121 th/mm3 (150-450); Red Blood Count 3.84 mil/mm3 (4.50-5.90); Red Cell Distribution Width 14.7 % (11.6-17.2); White Blood Count 5.4 th/mm3 (4.0-11.0)
[2017-11-23 10:00] LABS: Activated Partial Thrombo Time 22.7 sec (24.3-30.1); INR 0.9 Ratio; Prothrombin Time 9.4 sec (9.8-11.6)
--- NOTE | 2017-11-23 10:06 | ED ---
HPI General Chief Complaint: Chest Pain Stated Complaint: chest pain Time Seen by Provider: 11/23/17 09:26 Source: patient and EMS Mode of arrival: EMS Limitations: other (alcohol use) History of Present Illness HPI narrative: 56-year-old male who is been here before for alcohol intoxication presents today while he was drinking alcohol with noted chest pain to the ambulance team. To nursing staff he denies it. Patient is a very poor historian on initial evaluation and history is limited. Related Data Home Medications Medication Instructions Recorded Confirmed No Known Home Medications 11/10/17 11/10/17 Allergies Allergy/AdvReac Type Severity Reaction Status Date / Time No Known Allergies Allergy Unverified 11/10/17 13:46 Review of Systems ROS Unobtainable ROS Unobtainable: other (Alcohol use) [facility] Medical History Medical History Hepatitis C, chronic (Acute) ETOH abuse (Chronic) Seizures (Chronic) Chronic back pain (Chronic) Myocardial infarction (Chronic) Social History Social History Substance History: Active Abuse Second Hand Smoke Exposure: Yes Smoking Status: Current every day smoker Tobacco Type: Cigarettes How Often Do You Have a Drink Containing Alcohol: 4 or more times a week Recent Travel in [facility] within the Last 8 Weeks: No Recent Out of Country Travel within the Last 8 Weeks: No Substance Abuse Detail Alcohol: Substance Use Status: Active Route Used Substance Abuse: By Mouth Last Used: today Immunization History Tetanus Immunization: Unsure Hx Influenza Vaccine This Season: No Exam Narrative Exam Narrative: GENERAL: 56 y/o male presents in no apparent distress SKIN: Focused skin assessment warm/dry. HEAD: Atraumatic. Normocephalic. EYES: Pupils equal and round. No scleral icterus. No injection or drainage. ENT: No nasal bleeding or discharge. Mucous membranes pink and moist. NECK: Trachea midline. No JVD. CARDIOVASCULAR: Regular rate and rhythm. No murmur appreciated. RESPIRATORY: No accessory muscle use. Clear to auscultation. Breath sounds equal bilaterally. GASTROINTESTINAL: Abdomen soft, non-tender, nondistended. MUSCULOSKELETAL: No obvious deformities. No clubbing. No cyanosis. No edema. NEUROLOGICAL: Awake, Motor grossly within normal limits. slurred speech. Course Reevaluation(s) Reevaluation #1: Patient has delta type waves on EKG. He states he has history of [place]. He was having chest pain earlier and is very difficult to get history from as he is acutely intoxicated, patient updated and agrees to admit but shortly after I left the room I was informed that he was wanting to leave. [place] act placed. Patient is acutely intoxicated cannot leave at this time. Consultations Consultation #1: dr banks agrees to admit Initial Documented Vital Signs Temperature 98.3 F 11/23/17 09:12 Pulse Rate 94 H 11/23/17 09:12 Respiratory Rate 18 11/23/17 09:12 Blood Pressure 127/80 11/23/17 09:12 Pulse Oximetry 100 11/23/17 09:12 Last Documented Vital Signs Temperature 98.3 F 11/23/17 09:12 Pulse Rate 94 H 11/23/17 09:12 Respiratory Rate 18 11/23/17 09:12 Blood Pressure 127/80 11/23/17 09:12 Pulse Oximetry 100 11/23/17 09:32 Medical Decision Making [facility] Narrative Medical decision making narrative: Patient acutely intoxicated will check workup and reevaluate Medical Screen Exam Complete: Yes Emergency Medical Condition: Yes Differential Diagnosis Differential Diagnosis: Pancreatitis, alcohol intoxication, electrolyte abnormality, atypical cardiac Lab Data Lab results reviewed: Yes I reviewed the patient's lab results. Result diagrams: 11/23/17 09:29 11/23/17 09:29 Lab Results 11/23/17 11/23/17 11/23/17 Range/Units 09:29 09:29 09:29 WBC 5.4 (4.0-11.0) th/mm3 RBC 3.84 L (4.50-5.90) mil/mm3 Hgb 13.6 (13.0-17.0) gm/dL Hct 40.4 (39.0-51.0) % MCV 105.3 H (80.0-100.0) fL MCH 35.5 H (27.0-34.0) pg MCHC 33.7 (32.0-36.0) % RDW 14.7 (11.6-17.2) % Plt Count 121 L D (150-450) th/mm3 MPV 7.8 (7.0-11.0) fL Neut % (Auto) 49.4 (16.0-70.0) % Lymph % (Auto) 35.6 (9.0-44.0) % [place] % (Auto) 12.6 H (0.0-8.0) % Eos % (Auto) 1.1 (0.0-4.0) % Baso % (Auto) 1.3 (0.0-2.0) % Neut # (Auto) 2.7 (1.8-7.7) th/mm3 Lymph # (Auto) 1.9 (1.0-4.8) th/mm3 [place] # (Auto) 0.7 (0.0-0.9) th/mm3 Eos # (Auto) 0.1 (0.0-0.4) th/mm3 Baso # (Auto) 0.1 (0.0-0.2) th/mm3 WBC Differential . Differential Comment Auto diff final PT 9.4 L (9.8-11.6) sec INR 0.9 Ratio APTT 22.7 L (24.3-30.1) sec Sodium 134 L (136-145) meq/L Potassium 3.8 (3.5-5.1) meq/L Chloride 101 (98-107) meq/L Carbon Dioxide 21.6 (21.0-32.0) meq/L Anion Gap 11 (5-15) meq/L BUN 5 L (7-18) mg/dL Creatinine 0.67 (0.60-1.30) mg/dL Estimated GFR Greater than 89 (>89) mL/min Random Glucose 135 H (74-106) mg/dL Calcium 8.2 L (8.5-10.1) mg/dL Total Bilirubin 0.3 (0.2-1.0) mg/dL AST 117 H (15-37) U/L ALT 89 H (12-78) U/L Alkaline Phosphatase 56 (45-117) U/L Troponin I Less than 0.02 L (0.02-0.05) ng/mL Total Protein 6.8 (6.4-8.2) g/dL Albumin 3.5 (3.4-5.0) g/dL Lipase 337 (73-393) U/L Serum Alcohol 336 H (0-5) mg/dL Imaging Data Attestation: I personally reviewed and interpreted this imaging study as follows : Radiologist's impression: Chest X-Ray 11/23/17 09:26 CONCLUSION: The lungs are clear. Discharge Plan Discharge Disposition Patient Disposition: 30 Still Patient Discharge Condition Condition: Stable Discharge Details Diagnosis: Alcohol intoxication, Abnormal EKG, Chest pain Physicians Team ED Provider: Eliz Arroyo Primary Care Provider: UNKNOWN, Rxs /Orders / Referrals /Forms Prescriptions: No Action No Known Home Medications RF: 0 Discharge Instructions Patient Printed Instructions: Chest Pain (ED) Status ED Status: Admitted Observation Patient
--- NOTE | 2017-11-23 10:10 | XR ---
EXAM DATE: 11/23/2017 9:50 AM EDT AGE/SEX: 56 years / Male INDICATIONS: Chest pain. CLINICAL DATA: This is the patient's initial encounter. Patient reports that signs and symptoms have been present for 1 day and indicates a pain score of 10/10. MEDICAL/SURGICAL HISTORY: . epilepsy, smoker, heart attack, COPD . [place] [facility] [place]. . FINDINGS: A single AP view of the chest demonstrates the lungs to be symmetrically aerated without evidence of mass, infiltrate or effusion. The cardiomediastinal contours are unremarkable. Osseous structures a re intact. CONCLUSION: The lungs are clear. Electronically signed by: Yoav Desouza MD 11/23/2017 10:09 AM EDT
[2017-11-23 10:13] LABS: Albumin 3.5 g/dL (3.4-5.0); Anion Gap 11 meq/L (5-15); Aspartate Aminotransferase 117 U/L (15-37); Blood Urea Nitrogen 5 mg/dL (7-18); Calcium 8.2 mg/dL (8.5-10.1); Carbon Dioxide 21.6 meq/L (21.0-32.0); Chloride 101 meq/L (98-107); Glomerular Filtration Rate Greater Than 89 mL/min (>89); Glucose,Random 135 mg/dL (74-106); Lipase 337 U/L (73-393); Potassium 3.8 meq/L (3.5-5.1); Sodium 134 meq/L (136-145)
[2017-11-23 10:14] LABS: Alanine Aminotransferase 89 U/L (12-78)
[2017-11-23 10:18] LABS: Alkaline Phosphatase 56 U/L (45-117); Total Protein 6.8 g/dL (6.4-8.2)
[2017-11-23 10:35] LABS: Alcohol 336 mg/dL (0-5)
[2017-11-23] MEDS ORDERED: Bisacodyl 10 MG Supp RECTAL PRN (13:26)
[2017-11-23] MEDS ORDERED: Sod Chloride 0.9% Inj 1,000 ML IV.CONT SCH (13:30)
--- NOTE | 2017-11-23 13:36 | P.HPIM ---
History of Present Illness Service: This patient is a 56-year-old male who presents to our emergency department with complaints of left-sided chest pain. The patient states that he drinks alcohol every single day. As per the patient he drinks a pot approximately 20 cans of beer per day. He was drinking beer today when he began to have left-sided chest pain. He is a very poor historian however states that he does have a history of [place]. He denies any abdominal pain, no nausea or vomiting, no diarrhea. He does not have any other complaints. History of the patient's previous [place] is unclear at this point as the patient is not very cooperative during my interview. Primary Care Physician: UNKNOWN Review of Systems All other systems reviewed negative except as stated in HPI PMFSH - History History Provided By: Patient - Medical History Medical History: Medical History (Last Reviewed 11/23/17 @ 10:05 by Eliz Arroyo MD) Hepatitis C, chronic (Acute) ETOH abuse (Chronic) Seizures (Chronic) Chronic back pain (Chronic) Myocardial infarction (Chronic) - Tobacco History Second Hand Smoke Exposure: Yes Tobacco Use In Past 30 Days: Yes Smoking Status: Current every day smoker Tobacco Type: Cigarettes - Alcohol History How Often Do You Have a Drink Containing Alcohol: 4 or more times a week - Substance Use History Substance History: Active Abuse - Substance Use Type Alcohol Status: Active Route Used: By Mouth Last Used: today - Travel History Recent Travel in the [place] Within the Last 8 Weeks: No Recent Travel Out of the Country Within the Last 8 Weeks: No - Immunization History Tetanus Immunization: Unsure Hx Influenza Vaccine This Season: No Medications and Allergies Active Medications: Active Medications Al Hydroxide/Mg Hydroxide (Milk Of Magnesia Liq) 30 ml PO Q12H PRN PRN Reason: Mild Constipation Aspirin (Aspirin Chew) 81 mg PO DAILY GAMA Bisacodyl (Dulcolax Supp) 10 mg RECTAL DAILY PRN PRN Reason: SEVERE CONSITIPATION Sodium Chloride (Ns Inj) 1,000 mls @ 125 mls/hr IV.CONT .Q8H GAMA Lactulose (Lactulose Liq) 30 ml PO DAILY PRN PRN Reason: SEVERE CONSITIPATION Senna/Docusate Sodium (Eleanor-Colace) 1 tab PO BID GAMA Sennosides (Senokot) 17.2 mg PO Q12H PRN PRN Reason: Moderate Constipation Sodium Chloride (Ns Flush) 2 ml IV.FLUSH UNSCH PRN PRN Reason: FLUSH AFTER USING IV ACCESS Allergies Allergy/AdvReac Type Severity Reaction Status Date / Time No Known Allergies Allergy Unverified 11/10/17 13:46 Home Medications Medication Instructions Recorded Confirmed Type No Known Home Medications 11/10/17 11/10/17 History Exam Vital signs: Vital Signs 11/23/17 09:12 11/23/17 09:32 Temperature 98.3 F Pulse Rate 94 H Respiratory Rate 18 Blood Pressure 127/80 Pulse Oximetry 100 100 Intake & Output 11/22/17 11/23/17 11/23/17 18:59 06:59 18:59 Weight 52.617 kg Narrative: General patient in no acute distress HEENT extraocular movements are intact, clear oropharyngeal mucosa, no JVD Cardiovascular S1-S2 audible, RRR, no murmurs rubs or gallops, no reproducible chest pain on palpation of the chest. Respiratory clear to auscultation bilaterally Abdomen soft, nontender, nondistended, normal bowel sounds Extremities no edema 2+ distal pulses in bilateral upper and lower extremities Neuro patient moves all 4 extremities, sensation is intact bilaterally Results - Labs CBC & Chem 7: 11/23/17 09:29 11/23/17 09:29 Labs: Short CBC 11/23/17 Range/Units 09:29 WBC 5.4 (4.0-11.0) th/mm3 Hgb 13.6 (13.0-17.0) gm/dL Hct 40.4 (39.0-51.0) % Plt Count 121 L D (150-450) th/mm3 BMP 11/23/17 09:29 Sodium 134 L Potassium 3.8 Chloride 101 Carbon Dioxide 21.6 BUN 5 L Creatinine 0.67 Calcium 8.2 L Cardiac Enzymes 11/23/17 11/23/17 Range/Units 09:29 09:29 Total Creatine Kinase 91 (39-308) U/L Troponin I Less than 0.02 L (0.02-0.05) ng/mL Liver Function 11/23/17 Range/Units 09:29 Total Bilirubin 0.3 (0.2-1.0) mg/dL AST 117 H (15-37) U/L ALT 89 H (12-78) U/L Alkaline Phosphatase 56 (45-117) U/L Albumin 3.5 (3.4-5.0) g/dL - Imaging Impressions Chest X-Ray 11/23/17 09:26 CONCLUSION: The lungs are clear. Caprini VTE Risk Assessment Caprini VTE Risk Assessment: No/Low Risk (score <= 1) (Patient is ambulatory) Caprini Risk Assessment Model: Point Value = 1 Point Value = 2 Point Value = 3 Point Value = 5 Age 41-60 Minor surgery BMI > 25 kg/m2 Swollen legs Varicose veins or History of unexplained or recurrent spontaneous Oral contraceptives or hormone replacement Sepsis (< 1 month) Serious lung disease, including pneumonia (< 1 month) Abnormal pulmonary function Acute myocardial infarction Congestive heart failure (< 1 month) History of inflammatory bowel disease Medical patient at bed rest Age 61-74 Arthroscopic surgery Major open surgery (> 45 min) Laparoscopic surgery (> 45 min) Malignancy Confined to bed (> 72 hours) Immobilizing plaster cast Central venous access Age >= 75 History of VTE Family history of VTE Factor V Leiden Prothrombin [id number] Lupus anticoagulant Anticardiolipin antibodies Elevated serum homocysteine Heparin-induced thrombocytopenia Other congenital or acquired thrombophilia Stroke (< 1 month) Elective arthroplasty Hip, pelvis, or leg fracture Acute spinal cord injury (< 1 month) Prophylaxis Regimen: Total Risk Factor Score Risk Level Prophylaxis Regimen 0-1 Low Early ambulation 2 Moderate Order ONE of the following: *Sequential Compression Device (SCD) *Heparin 5000 units SQ BID 3-4 Higher Order ONE of the following medications: *Heparin 5000 units SQ TID *Enoxaparin/Lovenox 40 mg SQ daily (WT < 150 kg, CrCl > 30 mL/min) *Enoxaparin/Lovenox 30 mg SQ daily (WT < 150 kg, CrCl > 10-29 mL/min) *Enoxaparin/Lovenox 30 mg SQ BID (WT < 150 kg, CrCl > 30 mL/min) AND/OR *Sequential Compression Device (SCD) 5 or more Highest Order ONE of the following medications: *Heparin 5000 units SQ TID (Preferred with Epidurals) *Enoxaparin/Lovenox 40 mg SQ daily (WT < 150 kg, CrCl > 30 mL/min) *Enoxaparin/Lovenox 30 mg SQ daily (WT < 150 kg, CrCl > 10-29 mL/min) *Enoxaparin/Lovenox 30 mg SQ BID (WT < 150 kg, CrCl > 30 mL/min) AND *Sequential Compression Device (SCD) Assessment and Plan - Plan This patient is a 56-year-old male with an extensive alcohol drinking history. As per the patient he has a history of [place]. He came into our facility today with complaints of chest pain. I was called to evaluate the patient for the chest pain the history of the patient's myocardial infarction. 1. Chest pain concern for acute coronary syndrome. The patient will be admitted and monitored on telemetry. Initial EKG shows normal sinus rhythm no acute ST or T-wave changes. Delta waves are seen on the EKG however DC and QRS are within normal limits. He has received 325 mg of aspirin in the emergency department. He will be continued on aspirin and a statin and a beta-nicolle. Will follow up 2 more sets of cardiac enzymes and troponins and EKGs. 2. Alcohol intoxication. The patient's last drink was this morning. She will be started on IV fluids with multivitamin and thiamine. We will continue to monitor the patient for signs of withdrawal.
[2017-11-23] MEDS ORDERED: LORazepam 1 MG Tablet PO PRN (13:38)
[2017-11-23 16:16] VITALS: PULSE 93
[2017-11-23 16:21] VITALS: BP 138/81; RESP 20; TEMP 98
[2017-11-23 17:47] LABS: Cholesterol 163 mg/dL (120-200); Triglycerides 47 mg/dL (42-150)
[2017-11-23 17:50] LABS: Chol/HDL Ratio 1.48 Ratio; LDL Cholesterol,Calculated 44 mg/dL (0-99)
[2017-11-23 18:10] LABS: Creatine Kinase 89 U/L (39-308)
[2017-11-23 18:30] VITALS: O2SAT 96
[2017-11-23] MEDS ORDERED: Multivitamin Inj 10 ML, Thiamine Inj 100 MG, Folic Acid Inj 1 MG in Dextrose 5%/NaCl 0.... IV.SIG SCH (20:00)
--- NOTE | 2017-11-23 20:51 | ECG ---
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 ABNORMAL ECG PREVIOUS TRACING : 10/10/2016 08.12 Compared to previous tracing, there has been shortenong of the ND interval and pre-excitation of the QRS complex consisent with conduction down the acvcessory pathway. The criteria for the lateral infarct are new,but again a likely secobndary to abnormal condu ction. DOCTOR: Becki Nicholas Interpretating Date/Time 11/23/2017 20:50:30
[2017-11-23] MEDS ORDERED: Senna/Docusate Sodium 8.6/50 MG Tablet PO SCH (21:00)
--- NOTE | 2017-11-24 08:31 | ECG ---
Date Performed: 11/23/2017 Time Performed: 15:09:26 PTAGE: 56 years EKG: NORMAL Sinus rhythm WITH SINUS ARRHYTHMIA MCCARTHY PARKINSON WHITE PATTERN Since the previous tracing, likely no significant change noted ABNORMAL ECG PREVIOUS TRACING : 11/23/2017 09.12 DOCTOR: Swati Jara Interpretating Date/Time 11/24/2017 08:29:53
== END 2017-11-23 18:43 | disposition left against medical advice (07) ==
LOC: NEPE 09:06 → NEDA 09:06 → NEPFCDU 14:03
PROVIDERS: ADMIT Hospitalist; ATTEND Hospitalist